=== PATIENT | male | born 1990 | race African-American/Black ===

== ENCOUNTER 2020-04-08 14:52 | Inpatient (IN) | payer MEDICARE, OTHER ==
[~2020-04-08] VITALS: Ht 175.3 cm; Wt 86.2 kg
[2020-04-08] MEDS ORDERED: SODIUM CHLORIDE 0.9% 1000ML 1,000 ML IV STA (16:22)
--- NOTE | 2020-04-08 16:29 | Emergency Department Note ---
History of Present Illnes History of Present Illness History of Present Illness This is a 29 year old male . 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 c/o weakness dizziness stumbling slurred speech lethargic hx dawson - Dr Dawkins in eval pt status in triage Onset (how long ago): day(s) (1 hr cryptanalyst) Radiation: non-radiation, back, neck, extremity, abdomen, periumbilical, flank, proximal, distal, other Onset quality: sudden Duration (how long): day(s) ( hr cryptanalyst) Progression: worsening Context: recent illness, recent surgery, recent immobilization, recent travel, trauma/injury, new medications, hx of DVT/PE, non-compliance w/ medications, other Relieving factors: none Exacerbating factors: none Treatments prior to arrival: none (ROSE HUTCHINS NP) Past Medical/Family History Physician Review I have reviewed the patient's past medical and family history. Any updates have been documented here. (ROSE HUTCHINS NP) Past Medical History Past Medical History: Hypertension, Seizure Disorder (ROSE HUTCHINS NP) Social History Smoking Cessation: Current some day smoker Alcohol Use: Social Any Illegal Drug Use: Yes TB Exposure/Symptoms: No Physically hurt or threatened: No (ROSE HUTCHINS NP) Family History Family history of heart diseas: No (ROSE HUTCHINS NP) Other Any Pre-Existing Lines (PICC,: No (ROSE HUTCHINS NP) Review of Systems Review of Systems Constitutional: weakness, other (lethargic slurred speech dizziness ) EENTM: no symptoms Cardiovascular: no symptoms Respiratory: no symptoms Gastrointestinal: no symptoms Genitourinary: no symptoms Musculoskeletal: no symptoms Neurological: weakness, other (dizziness) Psychological: no symptoms Endocrine: no symptoms Hematological/Lymphatic: no symptoms Review of other systems All other systems reviewed and negative. (ROSE HUTCHINS NP) Physical Exam Related Data Allergies: Coded Allergies: gabapentin (Verified Allergy, Severe, 04/08/20) Vital signs reviewed: Yes (ROSE HUTCHINS NP) Physical Exam CONSTITUTIONAL Constitutional: well-developed, well-nourished HENT HENT: normocephalic, atraumatic HENT L/R: left ext ear normal, right ext ear normal EYES Eyes: PERRL, conjunctivae normal NECK Neck: ROM normal PULMONARY Pulmonary: effort normal, breath sounds normal CARDIOVASCULAR Cardiovascular: regular rhythm, heart sounds normal, capillary refill normal, normal rate GASTROINTESTINAL GENITOURINARY Genitourinary: exam deferred SKIN Skin: warm, dry MUSCULOSKELETAL Musculoskeletal: ROM normal NEUROLOGICAL Neurological: alert, oriented x 3, abnormal gait, weakness, other (lethargic ) PSYCHOLOGICAL Psychological: other (lethargic ) (ROSE HUTCHINS NP) Results Laboratory Laboratory Laboratory Tests Test 04/08/20 20:15 White Blood Count 3.95 x10e3/uL (4.8-10.8) Red Blood Count 5.24 x10e6/uL (4.3-5.7) Hemoglobin 15.5 g/dL (14.0-18.0) Hematocrit 46.5 % (38.2-49.6) Mean Corpuscular Volume 88.7 fL (81-99) Mean Corpuscular Hemoglobin 29.6 pg (28-32) Mean Corpuscular Hemoglobin Concent 33.3 g/dL (31-35) Red Cell Distribution Width 13.0 % (11.7-14.4) Platelet Count 338 x10e3/uL (140-360) Neutrophils (%) (Auto) 49.3 % (38.7-80.0) Lymphocytes (%) (Auto) 40.5 % (18.0-39.1) Monocytes (%) (Auto) 8.6 % (4.4-11.3) Eosinophils (%) (Auto) 1.0 % (0.0-6.0) Basophils (%) (Auto) 0.3 % (0.0-1.0) Neutrophils # (Auto) 2.0 (2.1-6.9) Lymphocytes # (Auto) 1.6 (1.0-3.2) Monocytes # (Auto) 0.3 (0.2-0.8) Eosinophils # (Auto) 0.0 (0.0-0.4) Basophils # (Auto) 0.0 (0.0-0.1) Absolute Immature Granulocyte (auto 0.01 x10e3/uL (0-0.1) Prothrombin Time 13.1 seconds (11.9-14.5) Prothromb Time International Ratio 0.94 Activated Partial Thromboplast Time 29.4 seconds (23.8-35.5) Ammonia 57 UG/DL (31-123) Acetaminophen Level < 3.0 ug/mL (10-30) Ethyl Alcohol Level < 10.0 mg/dL (0.0-10.0) Lab results reviewed: Yes (ROSE HUTCHINS NP) Imaging Impressions ct brain IMPRESSION: 1. No acute intracranial abnormality. 2. 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 Recommend correlation with surgical history. 3. Nonspecific calcifications within the bilateral lentiform nuclei and thalami. Differential is broad. Sequela of anoxic, toxic, metabolic, or infectious insult or underlying genetic metabolic abnormality inclusive of mitochondrial disease and abnormalities of calcium metabolism are all considerations. Signed by: Dr. Johann Pearson M.D. 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 c/o weakness dizziness stumbling slurred speech lethargic hx sz - Dr Dawkins in eval pt status in triage - lab ekg ct brain ordered Discussed pt presentation w/ Dr Tamie bueno pending (ROSE HUTCHINS NP) Assessment & Plan Final Impression: (1) ALTERED MENTAL STATUS, UNSPECIFIED Assessment & Plan Care of pt turned over to Dr Tamie bueno pending (ROSE HUTCHINS NP) Assessment & Plan CBC, CMP reviewed Dilantin level noted to be elevated CT brain review with post craniotomy findings noted (YONATAN FANG DO) Depart Disposition: ADMITTED Physician Attestation Provider Attestation The patient's history, exam findings, diagnostics, and a summary of any interventions or procedures was reviewed in detail with our [facility]. I personally interviewed and examined the patient, and I have reviewed and agree with the HPI andexam. My personal exam shows age-appropriate male appears confused and slow to respond. Phenytoin level noted to be markedly elevated was maybe the achieving cause of patient's confusion. Patient admitted for monitoring and observation hemodynamically stable, no concerns of infectious etiology at time of admission.. I confirm the diagnosis as documented by the [facility]ON[facility]. I have review ed and agree with the care plan articulated in the disposition section. (YONATAN FANG DO) ROSE HUTCHINS NP April 08, 2020 16:29 YONATAN FANG DO April 08, 2020 23:39
--- NOTE | 2020-04-08 17:15 | Diagnostic Imaging Report ---
Examination: Single AP view of the chest. COMPARISON: None. INDICATION: Slurred speech DISCUSSION: Lines/tubes: None. Lungs: The lungs are well inflated and clear. No pneumonia or pulmonary edema. Pleura: No pleural effusion or pneumothorax. Heart and mediastinum: The heart and the mediastinum are unremarkable. Bones and soft tissues: No acute bony abnormalities. IMPRESSION: 1. No acute cardiopulmonary abnormalities. Signed by: Dr. Dmitri Ochoa M.D. on 04/08/2020 5:11 PM
--- NOTE | 2020-04-08 17:33 | Diagnostic Imaging Report ---
History:Slurred speech, dizziness. Per ordering physician, patient has history of brain surgery in his 20s but uncertain reason. Also has history of seizures. Comparison studies: None Technique: Axial images were obtained from the skull base to the vertex. Coronal and sagittal images reconstructed from the axial data. Dose modulation, iterative reconstruction, and/or weight based adjustment of the mA/kV was utilized to reduce the radiation dose to as low as reasonably achievable. Intravenous contrast: None Findings: Scalp/skull: Postoperative changes of a prior left frontal craniotomy are present. Extra-axial spaces: No masses. No fluid collections. Brain sulci: Left frontal sulci are mildly prominent due to volume loss. Remaining sulci are are within normal limits for patient's age. Ventricles: Normal in caliber. No hydrocephalus. Parenchyma: Chronic insult with encephalomalacia, gliosis and dystrophic calcifications within the left superior and middle frontal gyrus beneath the left frontal craniotomy. Insult extends to the frontal horn of the left lateral ventricle. Additional scattered nonspecific calcifications are present within the lentiform nuclei and thalami. No mass, acute hemorrhage or acute cortical insults. Sellar/suprasellar region: No abnormalities. Craniocervical junction: Patent foramen magnum. No Chiari one malformation. IMPRESSION: 1. No acute intracranial abnormality. 2. 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 Recommend correlation with surgical history. 3. Nonspecific calcifications within the bilateral lentiform nuclei and thalami. Differential is broad. Sequela of anoxic, toxic, metabolic, or infectious insult or underlying genetic metabolic abnormality inclusive of mitochondrial disease and abnormalities of calcium metabolism are all considerations. Signed by: Dr. Johann Pearson M.D. on 04/08/2020 7:42 PM
[2020-04-08 21:01] LABS: BASOPHILS % 0.3 % (0.0-1.0); HEMATOCRIT 46.5 % (38.2-49.6); HEMOGLOBIN 15.5 g/dL (14.0-18.0); LYMPHOCYTES # (AUTO) 1.6 (1.0-3.2); LYMPHOCYTES % 40.5 % (18.0-39.1); MEAN CORPUSCULAR HEMOGLOBIN 29.6 pg (28-32); MEAN CORPUSCULAR HGB CONC 33.3 g/dL (31-35); MEAN CORPUSCULAR VOLUME 88.7 fL (81-99); MONOCYTES # (AUTO) 0.3 (0.2-0.8); MONOCYTES % 8.6 % (4.4-11.3); NEUTROPHILS % 49.3 % (38.7-80.0); PLATELET COUNT 338 x10e3/uL (140-360); RED BLOOD COUNT 5.24 x10e6/uL (4.3-5.7)
[2020-04-08 21:08] LABS: INR 0.94; PROTHROMBIN TIME 13.1 seconds (11.9-14.5)
[2020-04-08 21:09] LABS: PARTIAL THROMBOPLASTIN TIME 29.4 seconds (23.8-35.5)
[2020-04-08 21:18] LABS: ALANINE AMINOTRANSFERASE 8 IU/L (0-55); ALBUMIN 4.8 g/dL (3.5-5.0); ALBUMIN/GLOBULIN RATIO 1.4 (0.8-2.0); ALKALINE PHOSPHATASE 82 IU/L (40-150); ANION GAP 14.9 mmol/L (8-16); BLOOD UREA NITROGEN 8 mg/dL (7-26); BUN/CREATININE RATIO 9 (6-25); CALCIUM 9.5 mg/dL (8.4-10.2); CARBON DIOXIDE 28 mmol/L (22-29); CHLORIDE 99 mmol/L (98-107); CREATINE KINASE 147 IU/L (30-200); CREATININE, SERUM 0.93 mg/dL (0.72-1.25); EST GLOMERULAR FILTRATION RATE > 60 ML/MIN (60-); GLUCOSE 95 mg/dL (74-118); MAGNESIUM 2.2 MG/DL (1.3-2.1); POTASSIUM 3.9 mmol/L (3.5-5.1); SODIUM 138 mmol/L (136-145)
[2020-04-08 21:38] LABS: PHENYTOIN (DILANTIN) 37.68 ug/mL (10-20)
[2020-04-08 22:25] LABS: BILIRUBIN,URINE NEGATIVE (NEGATIVE); CLARITY,URINE CLEAR (CLEAR); COLOR,URINE AMBER (YELLOW); KETONES,URINE NEGATIVE (NEGATIVE); LEUKOCYTE ESTERASE ,URINE NEGATIVE (NEGATIVE); NITRITE,URINE NEGATIVE (NEGATIVE); PROTEIN,URINE DIPSTICK NEGATIVE (NEGATIVE); URINE UROBILINOGEN 0.2 mg/dL (0.2 - 1)
[2020-04-08 22:26] LABS: AMPHETAMINES SCREEN,URINE NEGATIVE (NEGATIVE); BENZODIAZEPINES SCREEN,URINE NEGATIVE (NEGATIVE); PHENCYCLIDINE SCREEN,URINE NEGATIVE (NEGATIVE)
[2020-04-08 23:00] LABS: EPITHELIAL CELLS,URINE RARE /LPF
[2020-04-08] MEDS ORDERED: SODIUM CHLORIDE 0.9% 1000ML 1,000 ML ONE (23:51)
[2020-04-09] VITALS (10 sets, daily range): BP systolic 121–147; BP diastolic 62–94
--- OUTSIDE RECORDS SUMMARY | 2020-04-09 00:21 | XMS REPORT | Clinical Summary ---
Author Author [facility] ict Organization [facility] ict Address Unknown Phone Unavailable Care Team Providers Care Potato Sorter Name Role Phone Olivia Acuña MD PCP Allergies Comments Active Allergy Reactions Severity Noted Date DOUBLE VISION Levetiracetam 09/08/2008 Medications End Date Status Medication Sig Dispensed Refills Start Date Active OXcarbazepine (TRILEPTAL) Take 2 Tabs 120 Tab 6 150 mg tabletIndications: by mouth 2 1 Seizure disorder times daily. Active OXcarbazepine (TRILEPTAL) Take 3 Tabs 180 Tab 12 150 mg tabletIndications: by mouth 2 1 Seizure disorder times daily. Active OXcarbazepine (TRILEPTAL) Take 1 Tab by 180 Tab 6 600 mg tabletIndications: mouth 2 times 1 Seizure disorder daily. Active silver sulfADIAZINE Apply to 50 g 0 (SILVADENE) 1 % topical affected area 3 creamIndications: Knee daily. pain, right Active ibuprofen (MOTRIN) 400 mg Take 1 tablet 30 tablet 0 tabletIndications: Knee by mouth 3 pain, right every 6 hours as needed for Pain. Active lacosamide (VIMPAT) 150 Take 100 mg 0 mg Tab by mouth 2 times daily . Active lacosamide (VIMPAT) 150 Take 150 mg 0 mg Tab by mouth every evening. Active propranolol hcl LA Take 120 mg 0 (INDERAL LA) 120 mg 24 hr by mouth capsule every evening. Active sodium chloride (OCEAN Use 1 [place] 15 mL 1 NASAL) 0.65 % nasal in each 4 sprayIndications: nostril as Impacted third molar needed for tooth Congestion. Active DILANTIN (DILANTIN) 30 mg Take 30 mg by 0 extended release capsule mouth. Active phenytoin sodium Take 200 mg 0 (DILANTIN EXTENDED) 100 by mouth 2 mg extended release times daily. capsule Active atenolol (TENORMIN) 50 mg Take 50 mg by 0 tablet mouth daily. Active ibuprofen (MOTRIN) 600 mg Take 1 tablet 30 tablet 0 tabletIndications: Caries by mouth 5 every 8 hours as needed for Pain. Active acetaminophen-codeine Take 2 30 tablet 0 01/11 (TYLENOL/CODEINE #3) tablets by 7 300-30 mg per mouth every 4 tabletIndications: Follow hours as up, Closed displaced needed for fracture of lateral Pain. malleolus of right fibula, initial encounter Active acetaminophen-codeine Take 1 tablet 45 tablet 0 (TYLENOL/CODEINE #3) by mouth 7 300-30 mg per every 4 hours tabletIndications: Other as needed for closed fracture of distal Pain. end of left fibula, initial encounter Active ergocalciferol (VITAMIN Take 1 12 capsule 0 D2) 50,000 unit capsule by 7 capsuleIndications: Other mouth weekly. closed fracture of distal end of left fibula, initial encounter Active calcium citrate 250 mg Take 1,250 mg 120 tablet 1 0 calcium TabIndications: by mouth 7 Other closed fracture of daily. distal end of left fibula, initial encounter Active perampanel (FYCOMPA) 2 mg Take by 90 tablet 3 TabIndications: Brain mouth. 0 neoplasm, 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 status epilepticus, unspecified epilepsy type Active Lacosamide (VIMPAT) 200 Take 1 po 90 tablet 3 mg tabletIndications: daily. 0 Brain neoplasm, 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 status epilepticus, unspecified epilepsy type Active propranolol (INDERAL) 10 Take 2 tabs 180 tablet 3 0 mg tabletIndications: three times a 0 Brain neoplasm, day. 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 0 Encounter for vaccination, Mixed hyperlipidemia, Urinary tract infection without hematuria, site unspecified, Vitamin D deficiency Active ergocalciferol (VITAMIN Take 1 12 capsule 0 D2) 1,250 mcg (50,000 capsule by 0 unit) capsuleIndications: mouth weekly. Vitamin D deficiency 11/24/2019 Discontinued (Reorder) propranolol (INDERAL) 10 Take 2 tabs 180 tablet 3 0 mg tabletIndications: three times a 0 Brain neoplasm, day. 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 status epilepticus, unspecified epilepsy type, Essential hypertension Active Problems Problem Noted Date Impaired functional mobility, balance, gait, and endu fanta 05/10/2017 Weakness of both lower extremities 05/10/2017 Decreased range of motion of ankle 05/10/2017 Acute left ankle pain 02/08/2017 Dental caries 04/30/2016 Unspecified dental caries 11/07/2015 Follow up 08/23/2015 Pain, dental 07/07/2015 Pain due to dental caries 05/20/2015 Dental decay 07/30/2014 Dental examination 06/04/2014 Impacted third molar tooth 01/27/2014 Knee pain, right 09/23/2013 Seizure disorders, absence 09/02/2009 Overview: Seizure episode Not unlike usual episo zheng. School concerned so called 911. Normal exam here in [place]. 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 wears hearing aids. Encounters Care Team Description Date Type Specialty Adarsh Kumari NP Epilepsy (Primary Dx) 03/03/2020 Telephonic Neurology Encounter Olivia Acuña MD Encounter for vaccination (Primary Dx); Mixed hyperlipidemia; Urinary tract infection without hematuria, site unspecified; Vitamin D deficiency; FH: CAD (coronary artery disease) 12/17/2019 Office Visit Family Practice Olivia Acuña MD Brain neoplasm; 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 status epilepticus, unspecified epilepsy type 12/10/2019 Hospital Radiology Encounter Olivia Acuña MD 12/07/2019 Hospital Encounter Olivia Acuña MD Brain neoplasm; 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 status epilepticus, unspecified epilepsy type; Essential hypertension 11/24/2019 Orders Only Family Practice Olivia Acuña MD Brain neoplasm (Primary Dx); 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 status epilepticus, unspecified epilepsy type; Essential hypertension 11/16/2019 Office Visit Family Practice Olivia Acuña MD Brain neoplasm; 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 status epilepticus, unspecified epilepsy type; Essential hypertension 11/16/2019 Orders Only Family Practice after 04/09/2019 Immunizations Name Administration Dates Next Due Influenza, Injectable, 12/17/2019 (Deferred: Patie nt Refused) Quadrivalent Family History Medical History Relation Name Comments Other Other no known family his tory Relation Name Status Comments Father kidney failure (Age 71) Other Social History Date Tobacco Use Types Packs/Day Years Used Never Smoker Smokeless Tobacco: Never Used Tobacco Cessation: Counseling Given: Yes Drinks/Week oz/Week Comments Alcohol Use No Food Insecurity Answer Date Recorded Within the past 12 months, you worried that your Never cristian e 11/16/2019 food would run out before you got money to buy more. Within the past 12 months, the food you bought Never true 11/16/2019 just didn't last and you didn't have mo bartolome to get more. Sex Assigned at Date Recorded Not on file Industry Job Start Date Occupation Not on file Not on file Not on file Travel End Travel History Travel Start No recent travel history available. Last Filed Vital Signs Reading Time Taken Comments Vital Sign 123/70 12/17/2019 8:59 AM OFFICE MESSENGER HELPER Blood Pressure 57 12/17/2019 8:59 AM OFFICE MESSENGER HELPER Pulse 36.9 C (98.5 F) 12/17/2019 8:59 AM OFFICE MESSENGER HELPER Temperature 18 12/17/2019 8:59 AM OFFICE MESSENGER HELPER Respiratory Rate - - Oxygen Saturation - - Inhaled Oxygen Concentration 87.8 kg (193 lb 9.6 oz) 12/17/2019 8:59 AM OFFICE MESSENGER HELPER Weight 175.3 cm (5' 9") 12/17/2019 8:59 AM OFFICE MESSENGER HELPER Height 28.59 12/17/2019 8:59 AM OFFICE MESSENGER HELPER Body Mass Index Plan of Treatment Care Team Description Date Type Specialty Vinod Faust OD [address] [place] [address] [phone] 05/10/2020 Office Visit Ophthalmology Olivia Acuña MD [address] [place] [address] [phone] 03/29 APT RESCHEDULED FROM COVID-19 PRECA UTIONS. 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 status epilepticus, unspecified epilepsy type URINALYSIS Routine 11/16/2019 Brain neoplasm 9:53 AM OFFICE MESSENGER HELPER 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 status epilepticus, unspecified epilepsy type URINALYSIS Routine 11/16/2019 Brain neoplasm 9:53 AM OFFICE MESSENGER HELPER 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 status epilepticus, unspecified epilepsy type CBC Routine 11/16/2019 Brain neoplasm 9:10 AM OFFICE MESSENGER HELPER 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 status epilepticus, unspecified epilepsy type VIT D, 25-HYDROXY Routine 11/16/2019 Brain neopla sm 9:10 AM OFFICE MESSENGER HELPER 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 status epilepticus, unspecified epilepsy type THYROID STIMULATING Routine 11/16/2019 Brain neop lasm HORMONE (TSH) 9:10 AM OFFICE MESSENGER HELPER Nonintractable epil epsy without status epilepticus, unspecified epilepsy type LIPID PROFILE Routine 11/16/2019 Brain neoplasm 9:10 AM OFFICE MESSENGER HELPER 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 status epilepticus, unspecified epilepsy type LIVER PROFILE Routine 11/16/2019 Brain neoplasm 9:10 AM OFFICE MESSENGER HELPER 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 status epilepticus, unspecified epilepsy type BASIC METABOLIC PANEL Routine 11/16/2019 Brain ne oplasm 9:10 AM OFFICE MESSENGER HELPER 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 Stable post surgical changes of le ft frontal craniotomy and left frontal lobe surgical cavity. No vasoge anna edema or new mass effect to suggest tumor recurrence. However, MRI of the brain with and without contrast is much more sensitive in eval uation for tumor surveillance. 2. Encephalomalacia and gliosis throu ghout the left frontal lobe in this patient with a history of seizures . 3. 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 I have reviewed the study and agree wit h the findings in this report. Signed By: Sloane Raymundo MD, 12/10/19 20 11:00 AM Narrative Performed At EXAM: CT BRAIN WITHOUT CONTRAST SMS DATE: 12/10/2019 8:24 AM INDICATION: "Seizure, new, nontraumatic , 18-40 yrs. Brain neoplasm" ADDITIONAL INFORMATION: 29-year-old mal e history of tumor resection over 10 years ago. Tumor pathology, stage, a nd treatment not specified. Seizure disorder, on medication. COMPARISON: CT brain from 12/07/2017 TECHNIQUE: Axial CT images of the brain are acquired without contrast. Sagittal and coronal reformats. IV contrast: None. DLP: 823 mGy-cm FINDINGS: Postsurgical changes of left frontal cr aniotomy and tumor resection with stable encephalomalacia involving the l eft frontal lobe superior and middle frontal gyri as well as portions of the single gyrus. Unchanged extensive calcification in th e bilateral basal ganglia and thalami, which likely represents post r adiation/post treatment microangiopathy. There is no intracranial hemorrhage. No extra-axial fluid collections. Huynh-white matter differentiation is in tact. There is no mass lesion or midline shift. The ventricles are cezar l in size there is no hydrocephalus. Nonspecific thickening in the right max illary sinus. The mastoid air cells are clear. No acute abnormality of the calvarium o r skull base. The globes and soft tissues are unremarkable. Procedure Note Interface, Rad/Mammog In - 12/10/2019 11:05 AM OFFICE MESSENGER HELPER EXAM: CT BRAIN WITHOUT CONTRAST DATE: 12/10/2019 8:24 AM INDICATION: "Seizure, new, nontraumatic, 18-40 yrs. Brain neoplasm" ADDITIONAL INFORMATION: 29-year-old male history of tumor resection over 10 years ago. Tumor pathology, stage, an d treatment not specified. Seizure disorder, on medication. COMPARISON: CT brain from 12/07/2017 TECHNIQUE: Axial CT images of the brain are acquired without contrast. Sagittal and coronal reformats. IV contrast: None. DLP: 823 mGy-cm FINDINGS: Postsurgical changes of left frontal craniotomy and tumor resection with stable encephalomalacia involving the left frontal lobe superior and middle frontal gyri as well as portions of the single gyrus. 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 There is no intracranial hemorrhage. No extra-axial fluid collections. Huynh-white matter differentiation is intact. There is no mass lesion or midline shift. The ventricles are normal in size there is no hydrocephalus. Nonspecific thickening in the right maxillary sinus. The mastoid air cells are clear. No acute abnormality of the calvarium or skull base. The globes and soft tissues are unremarkable. IMPRESSION IMPRESSION: 1. Stable post surgical changes of left frontal craniotomy and left frontal lobe surgical cavity. No vasogenic edema or new mass effect to suggest tumor recurrence. However, MRI of the brain with and without contrast is much more sensitive in evaluation for tumor surveillance. 2. Encephalomalacia and gliosis through out the left frontal lobe in this patient with a history of seizures. 3. 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 I have reviewed the study and agree with the findings in this report. Signed By: Sloane Raymundo MD, 12/10/2019 11:00 AM Performing Organization Address City/State/Zipcode Ph one Number SMS * EEG-ROUTINE (12/07/2019 10:02 AM OFFICE MESSENGER HELPER) Specimen Narrative Performed At [facility] EEG Report Generated: 12/07/2019 4:23:16 PM Patient Information ID [id number] EEG Date 12/07/2019 Name CUAUHTEMOC MUNSON EEG No. Gender Male In/Out patient Out Date of 1990 Refer. Dept. [place] Age 29 yr 2 mo Refer. Physician OLIVIA ACUÑA Eddy Current Inspector Fidelia Adams Comment [facility] Medications: Dilantin, Trileptal Start: 12/07/2019 9:29:48 AM End: 12/07/2019 10:02:18 AM Introduction This routine EEG using the Internationa l 10-20 System was performed on a patient who was lethargic during the recording. Description No PDR. Diffuse, generalized 4-6 Hz the ta and delta activity with reactivity. There is concomittant focal left hemisp heric slowing. Epileptiform Activity: 2 sharp waves, 1 over left frontal zuly on (F3>Fp1) and 1 over R frontal region (Fp2). No seizures are noted. Impression This abnormal EEG is consistent with a moderate-severe encephalopathy and left frontal epileptogenic struc tural abnormality. No seizures are capt ured. Provider ID: [id number] Procedure Note Interface, Eeg-Results - 12/07/2019 4:31 PM [facility] EEG Report Generated: 12/07/2019 4:23:16 PM Patient Information ID [id number] EEG Date 12/07/2019 Name CUAUHTEMOC MUNSON EEG No. Gender Male In/Out patient Out Date of 1990 Refer. Dept. [place] Age 29 yr 2 mo Refer. Physician OLIVIA ACUÑA Eddy Current Inspector Fidelia Adams Comment [facility] Medications: Dilantin, Trileptal Start: 12/07/2019 9:29:48 AM End: 12/07/2019 10:02:18 AM Introduction This routine EEG using the International 10-20 System was performed on a patient who was lethargic during the recording. Description No PDR. Diffuse, generalized 4-6 Hz theta and delta activity with reactivity. There is concomittant focal left hemispheric slowing. Epileptiform Activity: 2 sharp waves, 1 over left frontal regio n (F3>Fp1) and 1 over R frontal region (Fp2). No seizures are noted. Impression This abnormal EEG is consistent with a moderate-severe encephalopathy and left frontal epileptogenic struc tural abnormality. No seizures are captured. Provider ID: [id number] Performing Organization Address City/State/Zipcode Ph one Number [employer] [address] * Urinalysis (11/16/2019 9:53 AM OFFICE MESSENGER HELPER) Color Maria Esther (A) Colorless, Straw, [facility] Yellow [facility] Clarity Cloudy (A) Clear [facility] Spec Guston, 1.035 1.001 - 1.035 [facility] Ur [facility] pH, Ur 5.0 5.0 - 8.0 [facility] Protein, Ur 1+ (A) Negative mg/dL [facility] Glucose, Ur Negative Negative mg/dL [facility] Ketone, Ur 1+ (A) Negative mg/dL [facility] Bilirubin, Ur Negative Negative mg/dL [facility] Nitrite, Ur Negative Negative [facility] Leukocyte Negative Negative mg/dL [facility] Blood, Ur Negative Negative mg/dL [facility] RBC 5 (H) 0 - 4 /HPF [facility] WBC 1 0 - 5 /HPF [facility] Epithelial Cell <1 <=1 /HPF [facility] Mucous Present (A) None seen /HPF [facility] Bacteria Few (A) None seen /HPF [facility] Calc Ox Malissa Present (A) None seen /HPF [facility] Amorphous Sed Present (A) None seen /HPF [facility] Urobilinogen, 1.0 (A) <1.0 EU/dL [facility] Specimen Urine Performing Organization Address City/State/Zipcode Ph one Number [facility] [address] [place] [address] * CBC/Diff (11/16/2019 9:10 AM OFFICE MESSENGER HELPER) Pathologist [facility] WBC 4.5 4.5 - 12.0 K/uL [facility] RBC 4.82 4.60 - 6.20 M/uL [facility] Hemoglobin 14.7 14.0 - 18.0 g/dL [facility] Hematocrit 44.1 40.0 - 54.0 % [facility] MCV 91.5 82.0 - 92.0 fL [facility] MCH 30.5 27.0 - 31.0 pg [facility] MCHC 33.3 32.0 - 36.0 g/dL [facility] RDW 48.2 (H) 35.1 - 43.9 fL [facility] Platelet 240 150 - 400 K/uL [facility] Mean Platelet 11.0 9.4 - 12.4 fL [facility] Volume [facility] Percent NRBC 0.0 % [facility] Neutrophil 56.5 34.0 - 67.9 % [facility] Lymphs 33.0 21.8 - 50.0 % [facility] Monocytes 8.8 5.3 - 12.0 % [facility] Eos 1.1 0.8 - 5.0 % [facility] Basos 0.4 0.2 - 1.2 % [facility] Immature 0.2 0.0 - 0.5 % [facility] Granulocytes LAB[facility] Neutrophils 2.55 1.78 - 5.36 K/uL [facility] (Absolute) LABOR[facility]ORY Lymphs 1.49 1.32 - 3.57 K/uL [facility] (Absolute) LAB[facility] Monocytes(Absol 0.40 0.30 - 0.82 K/uL [facility] abraham) LABORATORY Eos (Absolute) 0.05 0.04 - 0.54 K/uL [facility] Baso (Absolute) 0.02 0.01 - 0.08 K/uL [facility] Immature Grans 0.01 0.00 - 0.03 K/uL [facility] (Abs) [facility] Absolute NRBC 0.00 K/uL [facility] Specimen Blood Performing Organization Address [facility] Ph one Number [facility] [address] [place] [address] * Vitamin D, 25-Hydroxycalciferol (11/16/2019 9:10 AM OFFICE MESSENGER HELPER) Pathologist [facility] Vit D, 17.6 (L) 30.0 - 100.0 ng/mL [facility] 25-Hydroxy LAB[facility]AT[facility] Vitamin D Deficient (A) Sufficient [facility] Interpretation Comment: [facility] Sufficient: >30.0 Insufficient: 20.0 - 29.9 Deficient: <20.0 Specimen Blood Performing Organization Address [facility] Ph one Number [facility] [address] [place] [address] * Hemoglobin A1C (11/16/2019 9:10 AM OFFICE MESSENGER HELPER) Pathologist [facility] Hemoglobin A1c 5.7 4.3 - 6.1 % [facility] Estimated 117 (H) 70 - 110 mg/dL [facility] Average Glucose LAB[facility]ATORY Specimen Blood Performing Organization Address [facility] one Number [facility] [address] [place] [address] * TSH [Thyroid Stimulating Hormone] (11/16/2019 9:10 AM OFFICE MESSENGER HELPER) TSH 1.10 0.45 - 5.33 uIU/mL [facility] Specimen Blood Performing Organization Address [facility] one Number [facility] [address] [place] [address] * Liver Profile (11/16/2019 9:10 AM OFFICE MESSENGER HELPER) Pathologist [facility] Total Protein 6.8 6.0 - 8.3 g/dL [facility] Bilirubin, 0.4 0.2 - 1.2 mg/dL [facility] Total LAB[facility] Alkaline 56 34 - 104 U/L [facility] Phosphatase LAB[facility]ORY AST 11 (L) 13 - 39 U/L [facility] Direct 0.1 0.0 - 0.2 mg/dL [facility] Bilirubin [facility] ALT 8 7 - 52 U/L [facility] Albumin 4.4 4.2 - 5.5 g/dL [facility] Specimen Blood Performing Organization Address [facility] one Number [facility] [address] [place], [place] [id number] * Lipid Profile (11/16/2019 9:10 AM OFFICE MESSENGER HELPER) Cholesterol 240.0 (H) <=200.0 mg/dL [facility] Triglyceride 72 <150 mg/dL [facility] HDL 46.0 See Reference Range [facility] Narrative. mg/dL LAB[facility]ATORY LDL 180 (H) <100 mg/dL [facility] Comment: [facility] Optimal: < 100.0 mg/dL Near Optimal: 120-129 mg/dL Borderline: 130-159 mg/dL High: 160-189 mg/dL Very High: >=190 mg/dL Patient Yes [facility] Fasting? LABORATORY Specimen Blood Performing Organization Address [facility] one Number [facility] [address] [place], [place] [id number] * Basic Metabolic Panel (11/16/2019 9:10 AM OFFICE MESSENGER HELPER) Sodium 141 136 - 145 mmol/L [facility] Potassium 4.1 3.5 - 5.1 mmol/L [facility] Chloride 104 98 - 107 mmol/L [facility] CO2 27 21 - 31 mmol/L [facility] Urea Nitrogen 17.0 7.0 - 25.0 mg/dL [facility] Creatinine 1.0 0.7 - 1.3 mg/dL [facility] Glucose 84 70 - 110 mg/dL [facility] Calcium 9.3 8.6 - 10.3 mg/dL [facility] eGFR If Africn >90 >=90 mL/min/1.73 m2 [facility] Am [facility] Anion Gap 10 5 - 16 mmol/L [facility] Specimen Blood Performing Organization Address City/State/Zipcode Ph one Number [facility] [address] [place] [address] after 04/09/2019 Insurance Type Payer Benefit Subscriber ID Effective Phone Address Plan / Dates Group [employer] HMO [employer] xxxxxxxxx 2018-P [address] [address] [place] [address] [facility] MEDICAID HMO [place] xxxxxxxxx 2017-P [phone] [id number] MEDICAID [facility] [id number] Advance Directives Date Inactivated Comments Code Status Date Activated 04/23/2014 5:57 PM Full Code 04/23/2014 2:20 AM
--- OUTSIDE RECORDS SUMMARY | 2020-04-09 00:22 | XMS REPORT ---
Author Author [facility] t Organization [facility] Address [address] [place] [address] Phone Unavailable Care Team Providers Care Grinding Operator Name Role Phone Domenico HE, S Olivia PCP Airanne HENDRIX Attphys Unavailable Quoc NET LEAD ARCHITECT, Adarsh Attphys Domenico HE, S Elizabethba Attphys Payers Payer Name Policy Type Policy Number Effective Date Expiration Date Jagdeep milena [employer] MEDICARE HMOAMERIVANTAGExxxxx [id number].[id number], [place] [address] xxxxxxxxx 2018 00:00:00 [facility] MEDICAID [employer] MEDIC AID [id number], [place] [address] xxxxxxxxx 2017 00:00:00 Chuck Rivera eahaider Problems Condition Name Condition Details Condition Category Status Onset Date Resolution Date Last Treatment Date Treating Clinician Comments Source Impaired functional mobility, balance, gait, and endur ance Impaired functional mobility, balance, gait, and endurance Disease Active 2017-05-10 00:00:00 [facility] Weakness of both lower extremities Weakness of both lower extrem ities Disease Active 2017-05-10 00:00:00 Roshan Loving Decreased range of motion of ankle Decreased range of motion of ankle Disease Active 2017-05-10 00:00:00 [facility] Acute left ankle pain Acute left ankle pain Disease Active 201 05-13-31 00:00:00 [facility] Dental caries Dental caries Disease Active 2016-04-30 00:00:00 [facility] Unspecified dental caries Unspecified dental caries Disease Ac tive 2015-11-07 00:00:00 [facility] Follow up Follow up Disease Active 2015-08-23 00:00:00 [facility] Pain, dental Pain, dental Disease Active 2015-07-07 00:00:00 [facility] Pain due to dental caries Pain due to dental caries Disease Ac tive 2015-05-20 00:00:00 [facility] Dental decay Dental decay Disease Active 2014-07-30 00:00:00 [facility] Dental examination Dental examination Disease Active 2014-06-04 00:00:0 0 [facility] Impacted third molar tooth Impacted third molar tooth Disease Active 2014-01-27 00:00:00 [facility] Knee pain, right Knee pain, right Disease Active 2013-09-23 00:00:00 [facility] Seizure disorders, absence Seizure disorders, absence Disease Active 2009-09-02 00:00:00 Overview: Seizur e episode Not unlike usual episodes. School concerned so called 911. Normal exam here in [place]. 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 wears hearing aids. [facility] Allergies, Adverse Reactions, Alerts Allergy Name Allergy Type Status Severity Reaction(s) Onset Date Inacti ve Date Treating Clinician Comments Source levetiracetam DA Active MO 2020-03-26 00:00:00 [facility] zonisamide DA Active MO 2020-03-26 00:00:00 [facility] No Known Allergies DA Active U 2019-05-31 00:00:00 [facility] Levetiracetam Propensity to adverse reactions to drug Active 2008-09-08 00:00:00 DOUBLE VISION [facility] Family History Family Member Diagnosis Comments Start Date Stop Date Source Other Other [facility] Social History Social Habit Start Date Stop Date Quantity Comments Source Sex Assigned At [facility] Alcohol intake 2019-12-17 00:00:00 2019-12-17 00:00:00 [facility] History SDOH Food Worry 2019-11-16 00:00:00 2019-11-16 00:00:00 1 [facility] History SDOH Food Scarcity 2019-11-16 00:00:00 2019-11-16 00:00:00 1 [facility] Smoking Status Start Date Stop Date Source Never smoker [facility] Medications Ordered Medication Name Filled Medication Name Start Date Stop Da te Current Medication? Ordering Clinician Indication Dosage Frequency Signature (SIG) Comments Components Source ciprofloxacin HCl (CIPRO) 500 mg tablet 2019-12-17 00:00:00 Yes Vitamin D deficiency Take 1 po twice daily. [facility] ergocalciferol (VITAMIN D2) 1,250 mcg (50,000 unit) capsule 2019-12-17 00:00:00 Yes Vitamin D deficiency 36637B Take 1 cap jin by mouth weekly. [facility] propranolol (INDERAL) 10 mg tablet 2019-11-24 00:00:00 Yes Essential hypertension Take 2 tabs three times a day. [facility] perampanel (FYCOMPA) 2 mg Tab 2019-11-16 00:00:00 Yes 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 status epilepticus, unspecified epilepsy type Take by mouth. [facility] Lacosamide (VIMPAT) 200 mg tablet 2019-11-16 00:00:00 Yes 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 status epilepticus, unspecified epilepsy type Take 1 po daily. [facility] propranolol (INDERAL) 10 mg tablet 2019-11-16 00:00:00 202 00:00:00 No Essential hypertension Take 2 tabs three times a d ay. [facility] acetaminophen-codeine (TYLENOL/CODEINE #3) 300-30 mg per tab let 2017-02-18 00:00:00 Yes Other closed fra cture of distal end of left fibula, initial encounter 1{tbl} Take 1 tablet by mouth every 4 hours as needed for Pain. [facility] ergocalciferol (VITAMIN D2) 50,000 unit capsule 2017-02-18 0 0:00:00 Yes Other closed fracture of distal end of left fibula, initial encounter 96149N Take 1 capsule by mouth weekly. [facility] lexii calcium citrate 250 mg calcium Tab 2017-02-18 00:00:00 Yes Other closed fracture of distal end of left fibula, initial encounter 1250mg QD Take 1,250 mg by mouth daily. [facility] acetaminophen-codeine (TYLENOL/CODEINE #3) 300-30 mg per tab let 2017-02-08 00:00:00 Yes Closed displaced fracture of lateral malleolus of right fibula, initial encounter 2{tbl} Take 2 tablets by mo uth every 4 hours as needed for Pain. [facility] phenytoin sodium (DILANTIN EXTENDED) 100 mg extended release capsule 2015-09-08 15:22:06 Yes 200mg Q.5D Take 200 mg by mouth 2 times daily. [facility] atenolol (TENORMIN) 50 mg tablet 2015-09-08 15:22:06 Yes 50mg QD Take 50 mg by mouth daily. [facility] lacosamide (VIMPAT) 150 mg Tab 2015-08-08 14:44:30 Yes 100mg Q.5D Take 100 mg by mouth 2 times daily . [facility] propranolol hcl LA (INDERAL LA) 120 mg 24 hr capsule 2 14:44:30 Yes 120mg Take 120 mg by mouth every evening. [facility] ibuprofen (MOTRIN) 600 mg tablet 2015-08-08 00:00:00 Yes Caries 600mg Take 1 tablet by mouth every 8 hours as needed for Pain. [facility] lacosamide (VIMPAT) 150 mg Tab 2015-05-27 14:41:22 Yes 150mg Take 150 mg by mouth every evening. [facility] DILANTIN (DILANTIN) 30 mg extended release capsule 2015-05 14:41:22 Yes 30mg Take 30 mg by mouth. [facility] sodium chloride (OCEAN NASAL) 0.65 % nasal spray 2014-04-23 00:00:00 Yes Impacted third molar tooth 1{spray} Use 1 [place] i n each nostril as needed for Congestion. [facility] silver sulfADIAZINE (SILVADENE) 1 % topical cream 2013-09-24 00:00:00 Yes Knee pain, right QD Apply to affected area daily. [facility] ibuprofen (MOTRIN) 400 mg tablet 2013-09-24 00:00:00 Yes Knee pain, right 400mg Take 1 tablet by mouth every 6 hours as needed for Javan n. [facility] OXcarbazepine (TRILEPTAL) 600 mg tablet 2011-04-13 00:00:00 Yes Seizure disorder 600mg Q.5D Take 1 Tab by mouth 2 times daily. [facility] OXcarbazepine (TRILEPTAL) 150 mg tablet 2011-02-02 00:00:00 Yes Seizure disorder 450mg Q.5D Take 3 Tabs by mouth 2 times daily. [facility] OXcarbazepine (TRILEPTAL) 150 mg tablet 2011-01-05 00:00:00 Yes Seizure disorder 300mg Q.5D Take 2 Tabs by mouth 2 times daily. [facility] Vital Signs Vital Name Observation Time Observation Value Comments Source Systolic blood pressure 2019-12-17 08:59:00 123 mm[Hg] [facility] Diastolic blood pressure 2019-12-17 08:59:00 70 mm[Hg] [facility] Heart rate 2019-12-17 08:59:00 57 /min [facility] Body temperature 2019-12-17 08:59:00 36.94 Rosa [facility] Respiratory rate 2019-12-17 08:59:00 18 /min [facility] Body height 2019-12-17 08:59:00 175.3 cm [facility] Body weight 2019-12-17 08:59:00 87.816 kg [facility] BMI 2019-12-17 08:59:00 28.59 kg/m2 [facility] Procedures Procedure Date / Time Performed Performing Clinician Sourc e CT HEAD W/O CONTRAST 2019-12-10 14:23:52 Domenico Elizabethdarrion [facility] EEG-ROUTINE 2019-12-07 16:02:18 DomenicoOlivia [facility] [place] [facility] URINALYSIS 2019-11-16 15:53:00 DomenicoOlivia [facility] URINALYSIS 2019-11-16 15:53:00 DomenicoOlivia [facility] HEMOGLOBIN A1C 2019-11-16 15:10:00 DomenicoOlivia [facility] CBC/DIFF 2019-11-16 15:10:00 Domenico, Olivia Gannon [facility] h BASIC METABOLIC PANEL 2019-11-16 15:10:00 Domenico, Olivia Gannon [facility] LIVER PROFILE 2019-11-16 15:10:00 Domenico, Olivia Gannon [facility] h LIPID PROFILE 2019-11-16 15:10:00 Domenico, Olivia [facility]annon [facility] h THYROID STIMULATING HORMONE (TSH) 2019-11-16 15:10:00 Domenico, Mi sba S [facility] VIT D, 25-HYDROXY 2019-11-16 15:10:00 Domenico, Olivia [facility] CBC 2019-11-16 15:10:00 Domenico, Olivia [facility]annon [facility] Plan of Care Planned Activity Planned Date Details Comments Source Future Scheduled Test 2020-08-11 00:00:00 IMM Influenza Seas onal Aug to January (>/= 19 yrs) [code = IMM Influenza Seasonal Aug to January (>/= 19 yrs)] [facility] Encounters Start Date/Time End Date/Time Encounter Type Admission Type [facility] Care Department Encounter ID Source 2017-12-07 22:24:45 2017-12-07 22:24:45 Emergency [facility] [id number] [facility] 2017-12-07 21:41:08 2017-12-07 21:41:08 Emergency [facility] [id number] [facility] 2017-12-07 20:43:04 2017-12-07 20:43:04 Emergency [facility] [id number] [facility] 2017-06-21 15:34:20 2017-06-21 15:34:20 Outpatient [facility] [id number] [facility] 2017-06-11 13:39:55 2017-06-11 13:39:55 Outpatient [facility] [id number] [facility] 2017-06-04 13:12:54 2017-06-04 13:12:54 Outpatient [facility] [id number] [facility] 2017-05-28 13:06:47 2017-05-28 13:06:47 Outpatient [facility] [id number] [facility] 2017-05-21 12:40:23 2017-05-21 12:40:23 Outpatient [facility] [id number] [facility] 2017-05-07 10:18:30 2017-05-07 10:18:30 Outpatient [facility] [id number] [facility] 2017-04-15 14:42:44 2017-04-15 14:42:44 Outpatient [facility] [id number] [facility] 2017-04-15 14:13:18 2017-04-15 14:13:18 Outpatient [facility] [id number] [facility] Results Test Description Test Time Test Comments Results Result Comments Source CT BRAIN WO 2020-04-08 17:13:00 [place] [address] Patient Name: MATILDE ZULUAGA JR MR #: [id number] : 1990 Age/Sex: 29/M Req #: [id number] Adm Physician: Ordered by: MALICK HENDRIX MD Report #: [id number] Location: ER Room/Bed: Procedure: [id number] CT/CT BRAIN WO Exam Date: 04/08/20 Exam Time: 1650 REPORT STATUS: Signed History:Slurred speech, dizziness. Per ordering physician, patient has history of brain surgery in his 20s but uncertain reason. Also has history of seizures. Comparison studies: None Technique: Axial images were obtained from the skull base to the vertex. Co latoya and sagittal images reconstructed from the axial data. Dose modulation, iterative reconstruction, and/or weight based adjustment of the mA/kV was utilized to reduce the radiation dose to as low as reasonably achievable. Intravenous contrast: None Findings: Scalp/skull: Postoperative changes of a prior left frontal craniotomy are present. Extra-axial spaces: No masses. No fluid collections. Brain sulci: Left frontal sulci are mildly prominent due to volume loss. Remaining sulci are are within normal limits for patient's age. Ventricles: Normal in caliber. No hydrocephalus. Parenchyma: Chronic insult with encephalomalacia, gliosis and dystrophic calcifications within the left superior and middle frontal gyrus beneath the left frontal craniotomy. Insult extends to the frontal horn of the left lateral ventricle. Additional scattered nonspecific calcifications are present within the lentiform nuclei and thalami. No mass, acute hemorrhage or acute cortical insults. Sellar/suprasellar region: No abnormalities. Craniocervical junction: Patent foramen magnum. No Chiari one malformation. IMPRESSION: 1. No acute intracranial abnormality. 2. 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 Recommend correlation with surgical history. 3. Nonspecific calcifications within the bilateral lentiform nuclei and thalami. Differential is broad. Sequela of anoxic, toxic, metabolic, or infectious insult or underlying genetic metabolic abnormality inclusive of mitochondrial disease and abnormalities of calcium metabolism are all considerations. Signed by: Dr. Serina Hines M.D. on 04/08/2020 7:42 PM Dictated By: SERINA HINES MD 41 Transcribed By: LEXI on 04/08/201941 COPY TO: MALICK HENDRIX MD CHEST SINGLE (PORTABLE) 2020-04-08 17:11:00 [place] [id number] Patient Name: MATILDE ZULUAGA JR MR #: [id number] : 1990 Age/Sex: 29/M Req #: [id number] [facility] Physician: Ordered by: MALICK HENDRIX MD Report #: [id number] Location: ER Room/Bed: Procedure: [id number] DX/CHEST SINGLE (PORTABLE) Exam Date: 04/08/20 Exam Time: 1650 REPORT STATUS: Signed Examination: Single AP view of the chest. COMPARISON: None. INDICATION: Slurred speech DISCUSSION: Lines/tubes: None. Lungs: The lungs are well inflated and clear. No pneumonia or pulmonary edema. Pleura: No pleural effusion or pneumothorax. Heart and mediastinum: The heart and the mediastinum are unremarkable. Bones and soft tissues: No acute bony abnormalities. IMPRESSION: 1. No acute cardiopulmonary abnormalities. Signed by: Dr. Deneen Mcdonald M.D. on 04/08/2020 5:11 PM Dictated By: DENEEN MCDONALD MD 10 Transcribed By: LEXI on 04/08/201710 COPY TO: MALICK HENDRIX MD - XR SHOULDER 2 + V LT 2020-03-26 05:48:00 FAX: Katlyn Bowen MD [phone] [place]: [place] St: PRE -- Name: MATILDE ZULUAGA [facility] FSED : 1990 Age/S: 29/M [address] [facility] Unit #: [id number] Loc: [facility] [address] Phys: Valeria Talbert MD [place], [place] [address] Acct: [id number] Dis Date: Status: PRE ER PHONE #: Exam Date: 03/26/2020 0538 FAX #: Reason: S/P REDUCTION EXAMS: CPT CODE: [id number] XR SHOULDER 2 + [place] [id number] R16 EXAM: - XR SHOULDER 2 + V LT HISTORY: S/P REDUCTION COMPARISON: 03/26/2020 at 445 FINDINGS: Interval reduction of shoulder dislocation. Hill-Sachs deformity in the posterolateral humeral head. No acute fracture or dislocation. The joint spaces are preserved. No aggressive osseous lesions. No soft tissue abnormality. The visualized lung is clear. IMPRESSION: Interval reduction of shoulder dislocation. at 0548 Reported and signed by: Tyrell Faye MD CC: Katlyn Howard MD Technologist: [facility]land [facility] Date/Time/By: 03/26/2020 (4448) : By: [email or web address] Orig Print D/T: S: 03/26/2020 (9985) PAGE 1 Signed Report - XR SHOULDER 2 + V LT 2020-03-26 05:03:00 FAX: Katlyn Bowen MD [phone] [place]: [place] St: PRE -- Name: MATILDE ZULUAGA [facility] FSED : 1990 Age/S: 29/M [address] [facility] [address] Unit #: [id number] Loc: [facility] [address] Phys: Valeria Talbert MD [place], [place] [address] Acct: [id number] Dis Date: Status: PRE ER PHONE #: Exam Date: 03/26/2020 0457 FAX #: Reason: PAIN SINCE SZ 3 DAYS AGO EXAMS: CPT CODE: [id number] XR SHOULDER 2 + [place] [id number] Exam: Left shoulder 2 views AP and lateral Location: H 12 History: PAIN SINCE SZ 3 DAYS AGO Findings: There is anter ior, subcoracoid dislocation of the humeral head. The bony cortices are intact. The acromioclavicular joint is well preserved. The soft tissues are normal. Impression: Anterior glenohumeral dislocation. at 0503 Reported and signed by: Aiden Matos M.D. CC: Katlyn Howard MD Technologist: Garland Nolan Trnnyrd Date/Time/By: 03/26/2020 (2893) : By: PaulineFC Orig Print D/T: S: 03/26/2020 (7801) PAGE [address] HEAD W/O CONTRAST 2019-12-10 11:00:29 IMPRESS ION: 1. Stable post surgical changes of left frontal craniotomy and leftfrontal lobe surgical cavity. No vasogenic edema or new mass effect tosuggest tumor recurrence. However, MRI of the brain with and withoutcontrast is much more sensitive in evaluation for tumor surveillance.2. Encephalomalacia and gliosis throughout the left frontal lobe inthis patient with a history of seizures.3. Coarse calcifications in the deep huynh matter, which likelyrepresent post radiation/post treatment microangiopathy. I have reviewed the study and agree with the findings in this report. Signed By: Sloane Raymundo MD, 12/10/2019 11:00 AM Interface, Rad/Mammog In - 12/10/2019 11:05 AM CSTEXAM: CT BRAIN WITHOUT CONTRASTDATE: 12/10/2019 8:24 AMINDICATION: "Seizure, new, nontraumatic, 18-40 yrs. Brain neoplasm" ADDITIONAL INFORMATION: 29-year-old male history of tumor resection over10 years ago. Tumor pathology, stage, and treatment not specified.Seizure disorder, on medication.COMPARISON: CT brain from 12/07/2017TECHNIQUE: Axial CT images of the brain are acquired without contrast.Sagittal and coronal reformats.IV contrast: None.DLP: 823 mGy-cm FINDINGS: Postsurgical changes of left frontal craniotomy and tumor resection withstable encephalomalacia involving the left frontal lobe superior andmiddle frontal gyri as well as portions of the single gyrus. Unchanged extensive calcification in the bilateral basal ganglia andthalami, which likely represents post radiation/post treatmentmicroangiopathy. There is no intracranial hemorrhage. No extra-axial fluid collections.Huynh-white matter differentiation is intact. There is no mass lesion ormidline shift. The ventricles are normal in size there is nohydrocephalus.Nonspecific thickening in the right maxillary sinus. The mastoid aircells are clear. No acute abnormality of the calvarium or skull base. The globes and softtissues are unremarkable.IMPRESSIONIMPRESSION: 1. Stable post surgical changes of left frontal craniotomy and leftfrontal lobe surgical cavity. No vasogenic edema or new mass effect tosuggest tumor recurrence. However, MRI of the brain with and withoutcontrast is much more sensitive in evaluation for tumor surveillance.2. Encephalomalacia and gliosis throughout the left frontal lobe inthis patient with a history of seizures.3. Coarse calcifications in the deep huynh matter, which likelyrepresent post radiation/post treatment microangiopathy.I have reviewed the study and agree with the findings in this report.Signed By: Sloane Raymundo MD, 12/10/2019 11:00 AM [facility] EEG-ROUTINE 2019-12-07 16:31:07 Matty, E eg-Results - 12/07/2019 4:31 PM [facility] SystemEEG ReportGenerated: 12/07/2019 4:23:16 PMPatient InformationID [id number] EEG Date 12/07/2019Name ZULUAGAMATILDE EEG No.Gender Male In/Out patient OutDate of 1990 Refer. Dept. CAAge 29 yr 2 mo Refer. Physician OLIVIA TONEY LBJMedications: KatantiChaya javedleptalStart: 12/07/2019 9:29:48 AMEnd: 12/07/2019 10:02:18 AMIntroductionThis routine EEG using the International 10-20 System was performed on a patient who was lethargic duringthe recording.DescriptionNo PDR. Diffuse, generalized 4-6 Hz theta and delta activity with reactivity.There is concomittant focal left hemispheric slowing.Epileptiform Activity:2 sharp waves, 1 over left frontal region (F3>Fp1) and 1 over R frontal region (Fp2).No seizures are noted.ImpressionThis abnormal EEG is consistent with a moderate-severe encephalopathy and left frontal epileptogenic structural abnormality. No seizures are captured.Provider ID: [id number] [facility] LEVETIRACETAM 2019-12-04 23:06:00 Test Item LEVETIRACETAM (test code = LEVTAM) 8.6 ug/mL 10.0-40.0 A This test was developed and its performance characteristicsdetermined by [employer]. It has not been cleared orapproved by the Food and Drug Administration.Performed At: [address] [id number] Pichardo MD Ph:[phone] CREATINE KINASE (CK)2019-12-03 03:36:00* Test Item Value Reference Range Interpretation Comments CREATINE KINASE (CK) (test code = CK) 370 IUnit/L 26-208 H HEPATIC FUNCTION [id number] 03:36:00* Test Item Value Reference Range Interpretation Comments TOTAL PROTEIN (test code = PROT) 5.5 gram/dL 6.4-8.2 L ALBUMIN (test code = ALB) 3.0 g/dL 3.4-5.0 L GLOBULIN (test code = GLOB) 2.5 gram/dL 2.7-4.2 L ALBUMIN/GLOBULIN RATIO (test code = A/G) 1.2 0.75-1.50 N BILIRUBIN TOTAL (test code = BILT) 0.30 mg/dL 0.0-1.0 N BILIRUBIN DIRECT (test code = BILD) 0.10 mg/dL 0.0-0.20 N SGOT/AST (test code = AST) 20 IUnit/L 15-37 N SGPT/ALT (test code = ALT) 19 IUnit/L 12-78 N ALKALINE PHOSPHATASE TOTAL (test code = ALKP) 61 IUnit/L 45-117 N Note change in reference range due to change in reagent. - MRI BRAIN W WO [id number] 09:42:00 FAX: Katlyn Bowen MD [phone] [place]: St: ADM FAX: Addis Portillo [phone] Name: MATILDE ZULUAGA [facility] : 1990 Age/S: 29/M [address] [facility] Unit #: [id number] Loc: [place] [address] Phys: Addis Portillo MD Acct: [id number] Dis Date: Status: ADM IN PHONE #: [phone] Exam Date: 12/02/2019916 FAX #: [phone] Reason: history of brain tumor EXAMS: CPT CODE: [id number] MRI BRAIN W WO CONT 20088 REASON FOR EXAM: history of brain tumor Exam Order Date: 12/02/2019 6:29 PM Attending MGustavo: Addis Portillo MD Procedure: - MRI BRAIN W WO CONT Comparison: CT scan of the brain November 30, 2019 FINDINGS: Axial, sagittal, and coronal images of the head were obtained using T1, T2 weighted, inversion recov yancy, diffusion weighted, and gradient echo sequences. Intravenous gadolin ium was given. The sagittal images show normal pituitary, ce rebellum, and brain stem. No evidence of suprasellar mass. T he axial T2, inversion recovery, and gradient echo images show no evidence of intra or extra axial mass. The ventricles, cisterns, and sulci are unr emarkable. No evidence of hemorrhage. The cerebellar pontine angle area is within normal limits. There is no evidence of mass noted. The axial T1 images show no evidence of mass. No evidence of an acute infarction. On the diffusion-weighted images (series 3 image 30) there are tiny hyperintense foci in the high right frontal lobe however no discrete hypointense focus is seen on the ADC images which suggests that this may be T2 shine through artifact. Postsurgical changes of l eft frontal craniotomy with encephalomalacia of the underlying left fronta l lobe are redemonstrated. Gradient echo images demonstrate blooming artif act within this area which may represent hemosiderin. Basal ganglia calcif ications are seen bilaterally. No abnormal meningeal enhance ment is present. No contrast-enhancing brain parenchymal masses are seen. Mucous retention cysts are seen in the maxillary sinuses, more pronounced on the right side. PAGE 1 Signed Report (CONTINUED) FAX: Katlyn Bowen MD [place]: St: [facility] FAX: Addis Portillo [phone] Name: MATILDE ZULUAGA [facility] : 1990 Age/S: 29/M [address] [facility] Unit #: [id number] Loc: [place], [place] [address] Phys: Addis Portillo MD Acct: [id number] Dis Date: Status: ADM IN PHONE #: Exam Date: 12/02/2019 09 FAX #: [phone] Reason: history of brain tumor EXAMS: CPT CODE: [id number] MRI BRAIN W WO CONT 45092 <Continued> The coronal images show normal optic chiasm. IMPRESSION: No acute intracranial hemorrhage, ischemic event, or contrast-enhancing lesion. Additionally no abnormal meningeal enhancement. Postsurgical changes of previous left frontal craniotomy with encephal omalacia and hemosiderin deposit in the underlying brain. Loca tion: HCA at 0 942 Reported and signed by: Myles Delaney MD CC: Katlyn Howard MD; Addis Portillo MD Techno logist: Cody iBrd(R)(MR) Trnscrd Date/Time /By: 12/02/2019 (0942) : By: [email or web address] Orig Print D/T: S: 12/02/2019 ( 0924) PAGE 2 Signed Report BASIC METABOLIC [id number] 04:19:00* Test Item Value Reference Range Interpretation Comments SODIUM (test code = NA) 142 mmol/L 136-145 N POTASSIUM (test code = K) 3.5 mmol/L 3.5-5.1 N CHLORIDE (test code = CL) 112.0 mmol/L 98-107 H CARBON DIOXIDE (test code = CO2) 24.0 mmol/L 21-32 N ANION GAP (test code = GAP) 9.5 10-20 L GLUCOSE (test code = GLU) 80 mg/dL 74-106 N BLOOD UREA NITROGEN (test code = BUN) 6 mg/dL 7-18 L GLOMERULAR FILTRATION RATE (test code = GFR) > 60 mL/min >=60 Estimated GFR by using Modified MDRD formula.Chronic kidney disease is defined as either kidney damageor GFR <60 mL/min/1.73 m2 for >3 months. CREATININE (test code = CREAT) 0.70 mg/dL 0.7-1.3 N BUN/CREATININE RATIO (test code = BUN/CREA) 8.6 10-20 L CALCIUM (test code = CA) 8.3 mg/dL 8.5-10.1 L HEPATIC FUNCTION [id number] 04:19:00* Test Item Value Reference Range Interpretation Comments TOTAL PROTEIN (test code = PROT) 6.3 gram/dL 6.4-8.2 L ALBUMIN (test code = ALB) 3.3 g/dL 3.4-5.0 L GLOBULIN (test code = GLOB) 3.0 gram/dL 2.7-4.2 N ALBUMIN/GLOBULIN RATIO (test code = A/G) 1.1 0.75-1.50 N BILIRUBIN TOTAL (test code = BILT) 0.30 mg/dL 0.0-1.0 N BILIRUBIN DIRECT (test code = BILD) 0.08 mg/dL 0.0-0.20 N SGOT/AST (test code = AST) 25 IUnit/L 15-37 N SGPT/ALT (test code = ALT) 19 IUnit/L 12-78 N ALKALINE PHOSPHATASE TOTAL (test code = ALKP) 56 IUnit/L 45-117 N Note change in reference range due to change in reagent. CREATINE KINASE (CK)2019-12-02 04:19:00* Test Item Value Reference Range Interpretation Comments CREATINE KINASE (CK) (test code = CK) 651 IUnit/L 26-208 H BASIC METABOLIC [id number] 04:13:00* Test Item Value Reference Range Interpretation Comments SODIUM (test code = NA) 142 mmol/L 136-145 N POTASSIUM (test code = K) 3.5 mmol/L 3.5-5.1 N CHLORIDE (test code = CL) 112.0 mmol/L 98-107 H CARBON DIOXIDE (test code = CO2) mmol/L 21-32 ANION GAP (test code = GAP) 10-20 GLUCOSE (test code = GLU) mg/dL 74-106 BLOOD UREA NITROGEN (test code = BUN) mg/dL 7-18 GLOMERULAR FILTRATION RATE (test code = GFR) mL/min >=60 CREATININE (test code = CREAT) mg/dL 0.7-1.3 BUN/CREATININE RATIO (test code = BUN/CREA) 10-20 CALCIUM (test code = CA) mg/dL 8.5-10.1 HEPATIC FUNCTION [id number] 04:13:00* Test Item Value Reference Range Interpretation Comments TOTAL PROTEIN (test code = PROT) gram/dL 6.4-8.2 ALBUMIN (test code = ALB) g/dL 3.4-5.0 GLOBULIN (test code = GLOB) gram/dL 2.7-4.2 ALBUMIN/GLOBULIN RATIO (test code = A/G) 0.75-1.50 BILIRUBIN TOTAL (test code = BILT) mg/dL 0.0-1.0 BILIRUBIN DIRECT (test code = BILD) mg/dL 0.0-0.20 SGOT/AST (test code = AST) IUnit/L 15-37 SGPT/ALT (test code = ALT) IUnit/L 12-78 ALKALINE PHOSPHATASE TOTAL (test code = ALKP) IUnit/L 45-117 CREATINE KINASE (CK)2019-12-02 04:13:00* Test Item Value Reference Range Interpretation Comments CREATINE KINASE (CK) (test code = CK) IUnit/L 26-208 [id number] 16:55:00* Test Item Value Reference Range Interpretation Comments MAGNESIUM (test code = MAG) 1.9 mg/dL 1.8-2.4 N CREATINE KINASE (CK)2019-12-01 13:57:00* Test Item Value Reference Range Interpretation Comments CREATINE KINASE (CK) (test code = CK) 932 IUnit/L 26-208 H BASIC METABOLIC [id number] 05:33:00* Test Item Value Reference Range Interpretation Comments SODIUM (test code = NA) 144 mmol/L 136-145 N POTASSIUM (test code = K) 4.0 mmol/L 3.5-5.1 N CHLORIDE (test code = CL) 113.0 mmol/L 98-107 H CARBON DIOXIDE (test code = CO2) 23.0 mmol/L 21-32 N ANION GAP (test code = GAP) 12.0 10-20 N GLUCOSE (test code = GLU) 76 mg/dL 74-106 N BLOOD UREA NITROGEN (test code = BUN) 9 mg/dL 7-18 N GLOMERULAR FILTRATION RATE (test code = GFR) > 60 mL/min >=60 Estimated GFR by using Modified MDRD formula.Chronic kidney disease is defined as either kidney damageor GFR <60 mL/min/1.73 m2 for >3 months. CREATININE (test code = CREAT) 0.80 mg/dL 0.7-1.3 N BUN/CREATININE RATIO (test code = BUN/CREA) 11.3 10-20 N CALCIUM (test code = CA) 8.2 mg/dL 8.5-10.1 L CREATINE KINASE (CK)2019-12-01 05:33:00* Test Item Value Reference Range Interpretation Comments CREATINE KINASE (CK) (test code = CK) 948 IUnit/L 26-208 H BASIC METABOLIC [id number] 05:25:00* Test Item Value Reference Range Interpretation Comments SODIUM (test code = NA) 144 mmol/L 136-145 N POTASSIUM (test code = K) 4.0 mmol/L 3.5-5.1 N CHLORIDE (test code = CL) 113.0 mmol/L 98-107 H CARBON DIOXIDE (test code = CO2) mmol/L 21-32 ANION GAP (test code = GAP) 10-20 GLUCOSE (test code = GLU) mg/dL 74-106 BLOOD UREA NITROGEN (test code = BUN) mg/dL 7-18 GLOMERULAR FILTRATION RATE (test code = GFR) mL/min >=60 CREATININE (test code = CREAT) mg/dL 0.7-1.3 BUN/CREATININE RATIO (test code = BUN/CREA) 10-20 CALCIUM (test code = CA) mg/dL 8.5-10.1 CREATINE KINASE (CK)2019-12-01 05:25:00* Test Item Value Reference Range Interpretation Comments CREATINE KINASE (CK) (test code = CK) IUnit/L -208 CBC W/AUTO [id number] 04:54:00* Test Item Value Reference Range Interpretation Comments WHITE BLOOD CELL (test code = WBC) 11.0 K/mm3 4.5-12.5 N RED BLOOD CELL (test code = RBC) 4.43 mill/mm3 4.0-5.8 N HEMOGLOBIN (test code = HGB) 13.1 gram/dL 13.0-17.5 N HEMATOCRIT (test code = HCT) 39.7 % 42.0-52.0 L MEAN CELL VOLUME (test code = MCV) 89.6 fL 80-98 N MEAN CELL HGB (test code = MCH) 29.6 picogram 27.0-33.0 N MEAN CELL HGB CONCETRATION (test code = MCHC) 33.0 gram/dL 33.0-36. 0 N RED CELL DISTRIBUTION WIDTH (test code = RDW) 13.3 % 11.6-16. 2 N RED CELL DISTRIBUTION WIDTH SD (test code = RDW-SD) 44.0 fL 37 .0-51.0 N PLATELET COUNT (test code = PLT) 226 K/mm3 150-450 RESULT VERIFIED BY REPEAT ANALYSIS MEAN PLATELET VOLUME (test code = MPV) 10.3 fL 6.7-11.0 N NEUTROPHIL % (test code = NT%) 77.6 % 39.0-69.0 H IMMATURE GRANULOCYTE % (test code = IG%) 0.4 % 0.0-5.0 N LYMPHOCYTE % (test code = LY%) 13.3 % 25.0-55.0 L MONOCYTE % (test code = MO%) 8.6 % 0.0-10.0 N EOSINOPHIL % (test code = EO%) 0.0 % 0.0-5.0 N BASOPHIL % (test code = BA%) 0.1 % 0.0-1.0 N NUCLEATED RBC % (test code = NRBC%) 0.0 % 0-0 N NEUTROPHIL # (test code = NT#) 8.56 K/mm3 1.8-7.7 H IMMATURE GRANULOCYTE # (test code = IG#) 0.04 x10 3/uL 0-0.03 H LYMPHOCYTE # (test code = LY#) 1.47 K/mm3 1.0-5.0 N MONOCYTE # (test code = MO#) 0.95 K/mm3 0-0.8 H EOSINOPHIL # (test code = EO#) 0.00 K/mm3 0.0-0.5 N BASOPHIL # (test code = BA#) 0.01 K/mm3 0.0-0.2 N NUCLEATED RBC # (test code = NRBC#) 0.00 K/mm3 0.0-0.1 N BASIC METABOLIC [id number] 20:42:00* Test Item Value Reference Range Interpretation Comments SODIUM (test code = NA) 145 mmol/L 136-145 N POTASSIUM (test code = K) 4.2 mmol/L 3.5-5.1 N CHLORIDE (test code = CL) 116.0 mmol/L 98-107 H CARBON DIOXIDE (test code = CO2) 22.0 mmol/L 21-32 N ANION GAP (test code = GAP) 11.2 10-20 N GLUCOSE (test code = GLU) 78 mg/dL 74-106 N BLOOD UREA NITROGEN (test code = BUN) 12 mg/dL 7-18 N GLOMERULAR FILTRATION RATE (test code = GFR) > 60 mL/min >=60 Estimated GFR by using Modified MDRD formula.Chronic kidney disease is defined as either kidney damageor GFR <60 mL/min/1.73 m2 for >3 months. CREATININE (test code = CREAT) 0.90 mg/dL 0.7-1.3 N BUN/CREATININE RATIO (test code = BUN/CREA) 13.3 10-20 N CALCIUM (test code = CA) 7.6 mg/dL 8.5-10.1 L HEPATIC FUNCTION [id number] 20:42:00* Test Item Value Reference Range Interpretation Comments TOTAL PROTEIN (test code = PROT) 6.1 gram/dL 6.4-8.2 L ALBUMIN (test code = ALB) 3.5 g/dL 3.4-5.0 N GLOBULIN (test code = GLOB) 2.6 gram/dL 2.7-4.2 L ALBUMIN/GLOBULIN RATIO (test code = A/G) 1.4 0.75-1.50 N BILIRUBIN TOTAL (test code = BILT) 0.20 mg/dL 0.0-1.0 N BILIRUBIN DIRECT (test code = BILD) 0.06 mg/dL 0.0-0.20 N SGOT/AST (test code = AST) 53 IUnit/L 15-37 H SGPT/ALT (test code = ALT) 27 IUnit/L 12-78 N ALKALINE PHOSPHATASE TOTAL (test code = ALKP) 60 IUnit/L 45-117 N Note change in reference range due to change in reagent. CREATINE KINASE (CK)2019-11-30 20:42:00* Test Item Value Reference Range Interpretation Comments CREATINE KINASE (CK) (test code = CK) 738 IUnit/L 26-208 H BASIC METABOLIC [id number] 20:37:00* Test Item Value Reference Range Interpretation Comments SODIUM (test code = NA) 145 mmol/L 136-145 N POTASSIUM (test code = K) 4.2 mmol/L 3.5-5.1 N CHLORIDE (test code = CL) 116.0 mmol/L 98-107 H CARBON DIOXIDE (test code = CO2) mmol/L 21-32 ANION GAP (test code = GAP) 10-20 GLUCOSE (test code = GLU) mg/dL 74-106 BLOOD UREA NITROGEN (test code = BUN) mg/dL 7-18 GLOMERULAR FILTRATION RATE (test code = GFR) mL/min >=60 CREATININE (test code = CREAT) mg/dL 0.7-1.3 BUN/CREATININE RATIO (test code = BUN/CREA) 10-20 CALCIUM (test code = CA) mg/dL 8.5-10.1 HEPATIC FUNCTION [id number] 20:37:00* Test Item Value Reference Range Interpretation Comments TOTAL PROTEIN (test code = PROT) gram/dL 6.4-8.2 ALBUMIN (test code = ALB) g/dL 3.4-5.0 GLOBULIN (test code = GLOB) gram/dL 2.7-4.2 ALBUMIN/GLOBULIN RATIO (test code = A/G) 0.75-1.50 BILIRUBIN TOTAL (test code = BILT) mg/dL 0.0-1.0 BILIRUBIN DIRECT (test code = BILD) mg/dL 0.0-0.20 SGOT/AST (test code = AST) IUnit/L 15-37 SGPT/ALT (test code = ALT) IUnit/L 12-78 ALKALINE PHOSPHATASE TOTAL (test code = ALKP) IUnit/L 45-117 CREATINE KINASE (CK)2019-11-30 20:37:00* Test Item Value Reference Range Interpretation Comments CREATINE KINASE (CK) (test code = CK) IUnit/L 26-208 DILANTIN (PHENYTOIN)2019-11-30 13:04:00* Test Item Value Reference Range Interpretation Comments DILANTIN (PHENYTOIN) (test code = DIL) 2.0 ug/mL 10.0-20.0 L URINALYSIS [id number] 10:10:00* Test Item Value Reference Range Interpretation Comments UA COLOR (test code = COLU) YELLOW YELLOW UA APPEARANCE (test code = APPU) HAZY CLEAR A UA GLUCOSE DIPSTICK (test code = DGLUU) 300-500 (3+) mg/dL NEGATIVE UA BILIRUBIN DIPSTICK (test code = BILU) NEGATIVE NEGATIVE UA KETONE DIPSTICK (test code = KETU) NEGATIVE mg/dL NEGATIVE UA SPECIFIC GRAVITY (test code = SGU) >=1.030 1.001-1.035 UA BLOOD DIPSTICK (test code = DEE) 3+ (Large) NEGATIVE A UA PH DIPSTICK (test code = MIKA) 5.5 5.0-8.0 UA PROTEIN DIPSTICK (test code = PROU) 100 (2+) mg/dL Neg-15 UA UROBILINIOGEN DIPSTICK (test code = URO) 0.2 mg/dL 0.0-0.2 UA NITRITE DIPSTICK (test code = JIMBO) NEGATIVE NEGATIVE UA LEUKOCYTE ESTERASE DIPSTICK (test code = LEUU) NEGATIVE uL NEGA TIVE UA MICROSCOPIC NEEDED? (test code = UAMICRO) YES UA WBC (test code = WBCU) 0-5 per HPF 0-5 UA RBC (test code = RBCU) 3-5 per HPF 0-5 A UA EPITHELIAL CELLS (test code = EPIU) Few (2-5/hpf) per HPF Few UA BACTERIA (test code = BACU) FEW per HPF NONE UA MUCUS (test code = MUCU) FEW per LPF NONE-FEW UA AMORPHOUS SEDIMENT (test code = AMORU) MANY per LPF NONE A Urine Source? Clean CatchDRUGS OF ABUSE SCREEN [id number] 10:10:00* Test Item Value Reference Range Interpretation Comments UR MDMA (test code = MDMAQLU) NEGATIVE NEGATIVE URN COCAINE (test code = COCAURN) NEGATIVE NEGATIVE URN CANNABINOIDS (test code = CANNABURN) NEGATIVE <50 ng/mL URN AMPHETAMINE (test code = AMPHETURN) NEGATIVE NEGATIVE URN BARBITURATE (test code = BARBITURN) NEGATIVE NEGATIVE URN BENZODIAZEPINE (test code = BENZOURN) NEGATIVE NEGATIVE URN OPIATES (test code = OPIATURN) NEGATIVE NEGATIVE URN PHENCYCLIDINE (PCP) (test code = PHENCURN) NEGATIVE NEGATIV E URN METHADONE (test code = METHAURN) NEGATIVE <300 ng/mL Urine Source? Clean CatchURINALYSIS [id number] 10:07:00* Test Item Value Reference Range Interpretation Comments UA COLOR (test code = COLU) YELLOW YELLOW UA APPEARANCE (test code = APPU) HAZY CLEAR A UA GLUCOSE DIPSTICK (test code = DGLUU) 300-500 (3+) mg/dL NEGATIVE UA BILIRUBIN DIPSTICK (test code = BILU) NEGATIVE NEGATIVE UA KETONE DIPSTICK (test code = KETU) NEGATIVE mg/dL NEGATIVE UA SPECIFIC GRAVITY (test code = SGU) >=1.030 1.001-1.035 UA BLOOD DIPSTICK (test code = DEE) 3+ (Large) NEGATIVE A UA PH DIPSTICK (test code = MIKA) 5.5 5.0-8.0 UA PROTEIN DIPSTICK (test code = PROU) 100 (2+) mg/dL Neg-15 UA UROBILINIOGEN DIPSTICK (test code = URO) 0.2 mg/dL 0.0-0.2 UA NITRITE DIPSTICK (test code = JIMBO) NEGATIVE NEGATIVE UA LEUKOCYTE ESTERASE DIPSTICK (test code = LEUU) NEGATIVE uL NEGA TIVE UA MICROSCOPIC NEEDED? (test code = UAMICRO) UA WBC (test code = WBCU) per HPF 0-5 UA RBC (test code = RBCU) per HPF 0-5 UA EPITHELIAL CELLS (test code = EPIU) per HPF Few UA BACTERIA (test code = BACU) per HPF NONE Urine Source? Clean CatchDRUGS OF ABUSE SCREEN [id number] 10:07:00* Test Item Value Reference Range Interpretation Comments UR MDMA (test code = MDMAQLU) NEGATIVE NEGATIVE URN COCAINE (test code = COCAURN) NEGATIVE NEGATIVE URN CANNABINOIDS (test code = CANNABURN) NEGATIVE <50 ng/mL URN AMPHETAMINE (test code = AMPHETURN) NEGATIVE NEGATIVE URN BARBITURATE (test code = BARBITURN) NEGATIVE NEGATIVE URN BENZODIAZEPINE (test code = BENZOURN) NEGATIVE NEGATIVE URN OPIATES (test code = OPIATURN) NEGATIVE NEGATIVE URN PHENCYCLIDINE (PCP) (test code = PHENCURN) NEGATIVE NEGATIV E URN METHADONE (test code = METHAURN) NEGATIVE <300 ng/mL Urine Source? Clean CatchURINALYSIS [id number] 09:59:00* Test Item Value Reference Range Interpretation Comments UA COLOR (test code = COLU) YELLOW YELLOW UA APPEARANCE (test code = APPU) HAZY CLEAR A UA GLUCOSE DIPSTICK (test code = DGLUU) 300-500 (3+) mg/dL NEGATIVE UA BILIRUBIN DIPSTICK (test code = BILU) NEGATIVE NEGATIVE UA KETONE DIPSTICK (test code = KETU) NEGATIVE mg/dL NEGATIVE UA SPECIFIC GRAVITY (test code = SGU) >=1.030 1.001-1.035 UA BLOOD DIPSTICK (test code = DEE) 3+ (Large) NEGATIVE A UA PH DIPSTICK (test code = MIKA) 5.5 5.0-8.0 UA PROTEIN DIPSTICK (test code = PROU) 100 (2+) mg/dL Neg-15 UA UROBILINIOGEN DIPSTICK (test code = URO) 0.2 mg/dL 0.0-0.2 UA NITRITE DIPSTICK (test code = JIMBO) NEGATIVE NEGATIVE UA LEUKOCYTE ESTERASE DIPSTICK (test code = LEUU) NEGATIVE uL NEGA TIVE UA MICROSCOPIC NEEDED? (test code = UAMICRO) UA WBC (test code = WBCU) per HPF 0-5 UA RBC (test code = RBCU) per HPF 0-5 UA EPITHELIAL CELLS (test code = EPIU) per HPF Few UA BACTERIA (test code = BACU) per HPF NONE Urine Source? Clean CatchDRUGS OF ABUSE SCREEN [id number] 09:59:00* Test Item Value Reference Range Interpretation Comments UR MDMA (test code = MDMAQLU) NEGATIVE URN COCAINE (test code = COCAURN) <300 ng/mL URN CANNABINOIDS (test code = CANNABURN) <50 ng/mL URN AMPHETAMINE (test code = AMPHETURN) <1000 ng/mL URN BARBITURATE (test code = BARBITURN) <200 ng/mL URN BENZODIAZEPINE (test code = BENZOURN) <200 ng/mL URN OPIATES (test code = OPIATURN) <300 ng/mL URN PHENCYCLIDINE (PCP) (test code = PHENCURN) <25 ng/ mL URN METHADONE (test code = METHAURN) <300 ng/mL Urine Source? Clean CatchCOMPREHENSIVE METABOLIC [id number] 09:42:00* Test Item Value Reference Range Interpretation Comments SODIUM (test code = NA) 140 mmol/L 128-145 N POTASSIUM (test code = K) 4.2 mmol/L 3.5-5.1 N CHLORIDE (test code = CL) 102.0 mmol/L 98-107 N CARBON DIOXIDE (test code = CO2) 20.2 mmol/L 22-29 L ANION GAP (test code = GAP) 22 mmol/L 10-20 H GLUCOSE (test code = GLU) 305 mg/dL 70-110 H BLOOD UREA NITROGEN (test code = BUN) 13 mg/dL 7-22 N CREATININE (test code = CREAT) 1.61 mg/dL 0.55-1.3 H BUN/CREATININE RATIO (test code = BUN/CREA) 8.1 10-20 L TOTAL PROTEIN (test code = PROT) 6.6 gram/dL 6.1-7.8 N ALBUMIN (test code = ALB) 3.6 g/dL 3.3-4.4 N GLOBULIN (test code = GLOB) 3.0 G/DL 1-10 N ALBUMIN/GLOBULIN RATIO (test code = A/G) 1.2 0.75-1.50 N CALCIUM (test code = CA) 7.8 mg/dL 8.0-10.5 L BILIRUBIN TOTAL (test code = BILT) 0.10 mg/dL 0.2-1.2 L SGOT/AST (test code = AST) 56 U/L 10-39 H SGPT/ALT (test code = ALT) 42 U/L 10-69 N ALKALINE PHOSPHATASE TOTAL (test code = ALKP) 76 U/L 50-139 N COMPREHENSIVE METABOLIC [id number] 09:40:00* Test Item Value Reference Range Interpretation Comments SODIUM (test code = NA) 140 mmol/L 128-145 N POTASSIUM (test code = K) 4.2 mmol/L 3.5-5.1 N CHLORIDE (test code = CL) 102.0 mmol/L 98-107 N CARBON DIOXIDE (test code = CO2) 20.2 mmol/L 22-29 L ANION GAP (test code = GAP) 22 mmol/L 10-20 H GLUCOSE (test code = GLU) 305 mg/dL 70-110 H BLOOD UREA NITROGEN (test code = BUN) 13 mg/dL 7-22 N CREATININE (test code = CREAT) 1.61 mg/dL 0.55-1.3 H BUN/CREATININE RATIO (test code = BUN/CREA) 8.1 10-20 L TOTAL PROTEIN (test code = PROT) gram/dL 6.4-8.2 ALBUMIN (test code = ALB) g/dL 3.4-5.0 GLOBULIN (test code = GLOB) G/DL 1-10 ALBUMIN/GLOBULIN RATIO (test code = A/G) 0.75-1.50 CALCIUM (test code = CA) 7.8 mg/dL 8.0-10.5 L BILIRUBIN TOTAL (test code = BILT) mg/dL 0.0-1.0 SGOT/AST (test code = AST) IUnit/L 15-37 SGPT/ALT (test code = ALT) IUnit/L 12-78 ALKALINE PHOSPHATASE TOTAL (test code = ALKP) IUnit/L 45-117 - CT HEAD/BRAIN W/O [id number] 09:23:00 Name: MATILDE ZULUAGA [facility] FSED : 1990 Age/S: 29 / M [address] [facility] Unit #: [id number] Loc: [address] Phys: Danial Pereyra MD [place], [place] [address] Acct: [id number] Dis Date: Status: REG ER PHONE #: Exam Date: 11/30/2019919 FAX #: Reason: seizure EXAMS: CPT CODE: [id number] CT HEAD/BRAIN W/O CONT [id number] HISTORY: seizure TECHNIQUE: Noncontrast 2.[address] of the head. Examination acquired within 24 hours of arrival. Automated exposure control for dose reduction. COMPARISON: Noncontrast CT brain May 31, 2019 FINDINGS: No lacerations or contusions of the scalp or facial soft tissues. Postsurgical changes of left frontal craniotomy are redemonstrated. No acute hemorrhage. No intracranial mass, mass effect, or midline shift. 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 No cortical atrophy. No signs of white matter small-vessel disease. Extensive basal ganglia calcifications appear similar to the previous examination. No hydrocephalus.. No extra-axial fluid collection. There is polypoid mucosal thickening in the right maxillary sinus which was not seen on the prior exam. Mastoid air cells and middle ear cavities are clear. Orbital contents are unremarkable. IMPRESSION: Newly visualized polypoid mucosal thickening in the right maxillary sinus. Findings are otherwise grossly unchanged from May 2019. Location: [facility] Gina ctronically Signed by Myles Delaney MD on 11/30/2019 at 0923 Reported and signed by: Myles Delaney MD PAGE 1 Signed Report (CONTINUED) Name: MATILDE ZULUAGA [facility] FSED : 1990 Age/S: 29 / M [address] [facility] [address] [facility] [address] Unit #: [id number] Loc: [address] Phys: Danial Pereyra MD [place] [address] Acct: [id number] Dis Date: Status: REG ER PHONE #: Exam Date: [id number] FAX #: Reason: seizure EXAMS: CPT CODE: [id number] CT HEAD/BRAIN W/O CONT [id number] <Continued> CC: Katlyn Howard MD; Danial Pereyra MD Technologist:ARSALAN WREN RT(R)(CT) CTDI: DLP: Trnscb Date/Time: 11/30/2019 (922) [email or web address] Orig Print D/T: S: 11/30/2019 (925) PAGE 2 Signed Report CBC W/AUTO [id number] 08:55:00* Test Item Value Reference Range Interpretation Comments WHITE BLOOD CELL (test code = WBC) 6.7 K/mm3 4.5-12.5 N RED BLOOD CELL (test code = RBC) 4.81 mill/mm3 4.0-5.8 N HEMOGLOBIN (test code = HGB) 14.4 gram/dL 13.0-17.5 N HEMATOCRIT (test code = HCT) 43.9 % 42.0-52.0 N MEAN CELL VOLUME (test code = MCV) 91.3 fL 80-98 N MEAN CELL HGB (test code = MCH) 29.9 picogram 27.0-33.0 N MEAN CELL HGB CONCETRATION (test code = MCHC) 32.8 gram/dL 33.0-36. 0 L RED CELL DISTRIBUTION WIDTH (test code = RDW) 12.8 % 11.6-16. 2 N RED CELL DISTRIBUTION WIDTH SD (test code = RDW-SD) 43.8 fL 37 .0-51.0 N PLATELET COUNT (test code = PLT) 293 K/mm3 150-450 N MEAN PLATELET VOLUME (test code = MPV) 9.9 fL 6.7-11.0 N NEUTROPHIL % (test code = NT%) 60.4 % 39.0-69.0 N LYMPHOCYTE % (test code = LY%) 32.3 % 25.0-55.0 N MONOCYTE % (test code = MO%) 1.9 % 0.0-10.0 N EOSINOPHIL % (test code = EO%) 0.7 % 0.0-5.0 N BASOPHIL % (test code = BA%) 0.1 % 0.0-1.0 N NEUTROPHIL # (test code = NT#) 4.03 K/mm3 1.8-7.7 N LYMPHOCYTE # (test code = LY#) 2.16 K/mm3 1.0-5.0 N MONOCYTE # (test code = MO#) 0.13 K/mm3 0-0.8 N EOSINOPHIL # (test code = EO#) 0.05 K/mm3 0.0-0.5 N BASOPHIL # (test code = BA#) 0.01 K/mm3 0.0-0.2 N MANUAL DIFF REQUIRED (test code = MDIFF) NO Hemoglobin [id number] 11:13:00* Test Item Value Reference Range Interpretation Comments Hemoglobin A1c (test code = 4548-4) 5.7 % 4.3-6.1 Estimated Average Glucose (test code = 50070456) 117 mg/dL 70-11 0 H Lab Interpretation (test code = 31232-1) [facility]normal [facility] 24-[id number] 09:57:00* Test Item Value Reference Range Interpretation Comments Vit D, 25-Hydroxy (test code = 48425851) 17.6 ng/mL 30-100 L Vitamin D Interpretation (test code = 37933538) Deficient Suffic ient A Sufficient: >30.0Insufficient: 20.0 - 29.9Deficient: <20.0 Lab Interpretation (test code = 55611-3) [facility]normal [id number] 08:08:00* Test Item Value Reference Range Interpretation Comments WBC (test code = 6690-2) 4.5 K/uL 4.5-12 RBC (test code = 789-8) 4.82 4.60- 6.20 M/uL Hemoglobin (test code = 718-7) 14.7 g/dL 14-18 Hematocrit (test code = 4544-3) 44.1 % 40-54 MCV (test code = 787-2) 91.5 fL 82-92 MCH (test code = 785-6) 30.5 pg 27-31 MCHC (test code = 786-4) 33.3 g/dL 32-36 RDW (test code = 44425-2) 48.2 fL 35.1-43.9 H Platelet (test code = 777-3) 240 K/uL 150-400 Mean Platelet Volume (test code = 78763-8) 11.0 fL 9.4-12.4 Percent NRBC (test code = 70694964) 0.0 % Neutrophil (test code = 770-8) 56.5 % 34-67.9 Lymphs (test code = 736-9) 33.0 % 21.8-50 Monocytes (test code = 5905-5) 8.8 % 5.3-12 Eos (test code = 713-8) 1.1 % 0.8-5 Basos (test code = 706-2) 0.4 % 0.2-1.2 Immature Granulocytes (test code = 83888351) 0.2 % 0-0.5 Neutrophils (Absolute) (test code = 19481474) 2.55 K/uL 1.78-5.3 6 Lymphs (Absolute) (test code = 75664453) 1.49 K/uL 1.32-3.57 Monocytes(Absolute) (test code = 53490974) 0.40 K/uL 0.3-0.82 Eos (Absolute) (test code = 56100252) 0.05 K/uL 0.04-0.54 Baso (Absolute) (test code = 13454562) 0.02 K/uL 0.01-0.08 Immature Grans (Abs) (test code = 27831940) 0.01 K/uL 0-0.03 Absolute NRBC (test code = 62681284) 0.00 K/uL Lab Interpretation (test code = 40213-3) Abnormal [facility] [Thyroid Stimulating Hormone]2019-11-17 08:01:00* Test Item Value Reference Range Interpretation Comments TSH (test code = 66545385) 1.10 0.45- 5.33 uIU/mL Lab Interpretation (test code = 90268-6) [facility] [id number] 07:58:00* Test Item Value Reference Range Interpretation Comments Sodium (test code = 2951-2) 141 mmol/L 136-145 Potassium (test code = 2823-3) 4.1 mmol/L 3.5-5.1 Chloride (test code = 2075-0) 104 mmol/L 98-107 CO2 (test code = 51624045) 27 mmol/L 21-31 Urea Nitrogen (test code = 01406298) 17.0 mg/dL 7-25 Creatinine (test code = 58226768) 1.0 mg/dL 0.7-1.3 Glucose (test code = 56875451) 84 mg/dL 70-110 Calcium (test code = 47233850) 9.3 mg/dL 8.6-10.3 eGFR If Africn Am (test code = 82695417) >90 >=90 mL/min/1 .73 m2 Anion Gap (test code = 48669870) 10 mmol/L 5-16 Lab Interpretation (test code = 55154-5) Normal [id number] 07:58:00* Test Item Value Reference Range Interpretation Comments Cholesterol (test code = 2093-3) 240.0 mg/dL <=200.0 H Triglyceride (test code = 62395276) 72 mg/dL <150 HDL (test code = 2085-9) 46.0 mg/dL See Reference Range Narrative . LDL (test code = 18799-3) 180 mg/dL <100 H Op timal: < 100.0 mg/dLNear Optimal: 120-129 mg/dLBorderline: 130-159 mg/dLHigh: 160-189 mg/dLVery High: >=190 mg/dL Patient Fasting? (test code = 12438894) Yes Lab Interpretation (test code = 08646-3) Abnormal [facility] [id number] 07:58:00* Test Item Value Reference Range Interpretation Comments Bilirubin, Total (test code = 2885-2) 0.4 mg/dL 0.2-1.2 Alkaline Phosphatase (test code = 72683142) 56 U/L 34-104 AST (test code = 68825260) 11 U/L 13-39 L Direct Bilirubin (test code = 1968-7) 0.1 mg/dL 0-0.2 ALT (test code = 12075455) 8 U/L 7-52 Albumin (test code = 75124-4) 4.4 g/dL 4.2-5.5 Lab Interpretation (test code = 11695-2) Abnormal [id number] 01:23:00* Test Item Value Reference Range Interpretation Comments Color (test code = 59816829) Maria Esther Colorless, Straw, Yellow A Clarity (test code = 45185809) Cloudy Clear A Spec [place], Ur (test code = 73382185) 1.035 1.001-1.035 pH, Ur (test code = 34660994) 5.0 5.0-8.0 Protein, Ur (test code = 36716864) 1+ Negative mg/dL A Glucose, Ur (test code = 28475426) Negative Negative mg/dL Ketone, Ur (test code = 87260846) 1+ Negative mg/dL A Bilirubin, Ur (test code = 73460702) Negative Negative mg/dL Nitrite, Ur (test code = 82050062) Negative Negative Leukocyte (test code = 73090891) Negative Negative mg/dL Blood, Ur (test code = 81263240) Negative Negative mg/dL RBC (test code = 65563244) 5 0- 4 /HPF H WBC (test code = 55369052) 1 0- 5 /HPF Epithelial Cell (test code = 76275693) <1 <=1 /HPF Mucous (test code = 87772083) Present None seen /HPF A Bacteria (test code = 75365909) Few None seen /HPF A Calc Ox Malissa (test code = 29450551) Present None seen /HPF A Amorphous Sed (test code = 07212127) Present None seen /HPF A Urobilinogen, Ur (test code = 92828622) 1.0 EU/dL <1.0 A Lab Interpretation (test code = 64272-4) Abnormal [facility] [id number] 17:51:00* Test Item Value Reference Range Interpretation Comments LACTIC ACID (test code = LACT) 0.7 MMOL/L 0.4-1.9 N - CT HEAD/BRAIN W/O [id number] 17:48:00 Name: MATILDE ZULUAGA FSED : 1990 Age/S: 28 / M [address] Unit #: [id number] Loc: [address] Phys: Kwabena Lezama DO [place], [place] [address] Acct: [id number] Dis Date: Status: REG ER PHONE #: Exam Date: 05/31/2019 2309 FAX #: Reason: Seizure EXAMS: CPT CODE: [id number] CT HEAD/BRAIN W/O CONT 52369 REASON FOR EXAM: Seizure EXAM ORDER DATE: 05/31/2019 5:15 PM Ordering M.D.: Kwabena Lezama DO PROCEDURE: - CT HEAD/BRAIN W/O CONT COMPARISON: FINDINGS: CT images of the brain were obtained without IV contrast. Dose modulation, iterative reconstruction, and/or weight based adjustment of the MA/KV was utilized to reduce the radiation dose to as low as reasonably achievable. Mild patchy low densities appearance of the paraventricular region noted consistent with nonspecific white matter disease. The huynh-white matter delineation is unremarkable. The ventricles, cisterns, and sulci are unremarkable. There is no evidence of hemorrhage, mass, mass effect. There is no evidence of acute infarct. Diffuse physiologic calcification in the basal ganglia IMPRESSION: Nonspecific deep white matter disease. Chronic left frontal lobe encephalomalacia with associated craniotomy changes at 1748 Reported and signed by: Scout Sawant M.D. CC: Katlyn Howard MD; Kwabena Lezama DO Technologist:Adarsh Mendez RT(R),CT CTDI: DLP: Trnscb Date/Time: 05/31/2019 (1748) tLUDIVINA Orig Print D/T: S: 05/31/2019 (0925) PAGE 1 Signed Report BASIC METABOLIC [id number] 17:39:00* Test Item Value Reference Range Interpretation Comments SODIUM (test code = NA) 143 mmol/L 128-145 N POTASSIUM (test code = K) 3.5 mmol/L 3.5-5.1 N CHLORIDE (test code = CL) 105.0 mmol/L 98-107 N CARBON DIOXIDE (test code = CO2) 27.2 mmol/L 22-29 N ANION GAP (test code = GAP) 14 mmol/L 10-20 N GLUCOSE (test code = GLU) 103 mg/dL 70-110 N BLOOD UREA NITROGEN (test code = BUN) 15 mg/dL 7-22 N GLOMERULAR FILTRATION RATE (test code = GFR) > 60 mL/min >=60 Estimated GFR by using Modified MDRD formula.Chronic kidney disease is defined as either kidney damageor GFR <60 mL/min/1.73 m2 for >3 months. CREATININE (test code = CREAT) 0.94 mg/dL 0.55-1.3 N BUN/CREATININE RATIO (test code = BUN/CREA) 16.0 10-20 N CALCIUM (test code = CA) 8.7 mg/dL 8.0-10.5 N HEPATIC FUNCTION [id number] 17:39:00* Test Item Value Reference Range Interpretation Comments TOTAL PROTEIN (test code = PROT) 6.9 gram/dL 6.1-7.8 N ALBUMIN (test code = ALB) 4.0 g/dL 3.3-4.4 N GLOBULIN (test code = GLOB) 2.9 G/DL 1-10 N ALBUMIN/GLOBULIN RATIO (test code = A/G) 1.4 0.75-1.50 N BILIRUBIN TOTAL (test code = BILT) 0.50 mg/dL 0.2-1.2 N BILIRUBIN DIRECT (test code = BILD) 0.10 mg/dL 0.0-0.30 N SGOT/AST (test code = AST) 16 U/L 10-39 N SGPT/ALT (test code = ALT) 14 U/L 10-69 N ALKALINE PHOSPHATASE TOTAL (test code = ALKP) 52 U/L 50-139 N CREATINE KINASE (CK)2019-05-31 17:39:00* Test Item Value Reference Range Interpretation Comments CREATINE KINASE (CK) (test code = CK) 517 U/L 39-308 H [id number] 17:39:00* Test Item Value Reference Range Interpretation Comments LIPASE (test code = LIP) 94 Unit/L 144-286 L [id number] 17:39:00* Test Item Value Reference Range Interpretation Comments TROPONIN-I (test code = TROPI) <0.015 ng/mL 0.00-0.056 N [id number] 17:39:00* Test Item Value Reference Range Interpretation Comments ALCOHOL (test code = ALC) < 3 mg/dL 0.0-3.0 N -- INTERPRETIVE DATA NOTE: POSITIVE SCREENING RESULTS SHOULD BE CONSIDERED PRESUMPTIVE.WHEN COLLECTED FOR MEDICAL PURPOSES ONLY. SPECIMEN WILL NOTBE COLLECTED BY CHAIN OF CUSTODY.IF A CONFIRMATION OF POSITIVE RESULTS IS DESIRED, ACONFIRMATION TEST MUST BE REQUESTED BY THE PHYSICIAN AT ANADDITIONAL CHARGE TO THE PATIENT. BASIC METABOLIC [id number] 17:33:00* Test Item Value Reference Range Interpretation Comments SODIUM (test code = NA) 143 mmol/L 128-145 N POTASSIUM (test code = K) 3.5 mmol/L 3.5-5.1 N CHLORIDE (test code = CL) 105.0 mmol/L 98-107 N CARBON DIOXIDE (test code = CO2) 27.2 mmol/L 22-29 N ANION GAP (test code = GAP) 14 mmol/L 10-20 N GLUCOSE (test code = GLU) 103 mg/dL 70-110 N BLOOD UREA NITROGEN (test code = BUN) 15 mg/dL 7-22 N GLOMERULAR FILTRATION RATE (test code = GFR) > 60 mL/min >=60 Estimated GFR by using Modified MDRD formula.Chronic kidney disease is defined as either kidney damageor GFR <60 mL/min/1.73 m2 for >3 months. CREATININE (test code = CREAT) 0.94 mg/dL 0.55-1.3 N BUN/CREATININE RATIO (test code = BUN/CREA) 16.0 10-20 N CALCIUM (test code = CA) 8.7 mg/dL 8.0-10.5 N HEPATIC FUNCTION [id number] 17:33:00* Test Item Value Reference Range Interpretation Comments TOTAL PROTEIN (test code = PROT) gram/dL 6.4-8.2 ALBUMIN (test code = ALB) g/dL 3.4-5.0 GLOBULIN (test code = GLOB) G/DL 1-10 ALBUMIN/GLOBULIN RATIO (test code = A/G) 0.75-1.50 BILIRUBIN TOTAL (test code = BILT) mg/dL 0.0-1.0 BILIRUBIN DIRECT (test code = BILD) mg/dL 0.0-0.20 SGOT/AST (test code = AST) IUnit/L 15-37 SGPT/ALT (test code = ALT) IUnit/L 12-78 ALKALINE PHOSPHATASE TOTAL (test code = ALKP) IUnit/L 45-117 CREATINE KINASE (CK)2019-05-31 17:33:00* Test Item Value Reference Range Interpretation Comments CREATINE KINASE (CK) (test code = CK) U/L 39-308 [id number] 17:33:00* Test Item Value Reference Range Interpretation Comments LIPASE (test code = LIP) U/L 73.0-393.0 [id number] 17:33:00* Test Item Value Reference Range Interpretation Comments TROPONIN-I (test code = TROPI) ng/mL 0-0.045 [id number] 17:33:00* Test Item Value Reference Range Interpretation Comments ALCOHOL (test code = ALC) mg/dL 0-3 CBC W/O [id number] 17:22:00* Test Item Value Reference Range Interpretation Comments WHITE BLOOD CELL (test code = WBC) 4.6 K/mm3 4.5-12.5 N RED BLOOD CELL (test code = RBC) 4.39 mill/mm3 4.0-5.8 N HEMOGLOBIN (test code = HGB) 13.0 gram/dL 13.0-17.5 N HEMATOCRIT (test code = HCT) 39.7 % 42.0-52.0 L MEAN CELL VOLUME (test code = MCV) 90.4 fL 80-98 N MEAN CELL HGB (test code = MCH) 29.6 picogram 27.0-33.0 N MEAN CELL HGB CONCETRATION (test code = MCHC) 32.7 gram/dL 33.0-36. 0 L RED CELL DISTRIBUTION WIDTH (test code = RDW) 13.2 % 11.6-16. 2 N RED CELL DISTRIBUTION WIDTH SD (test code = RDW-SD) 44.1 fL 37 .0-51.0 N PLATELET COUNT (test code = PLT) 238 K/mm3 150-450 N MEAN PLATELET VOLUME (test code = MPV) 10.1 fL 6.7-11.0 N
[2020-04-09] MEDS ORDERED: PHENYTEK200 MG PO (01:03)
[2020-04-09] MEDS ORDERED: VIMPAT200 MG PO (01:03)
[2020-04-09] MEDS ORDERED: FYCOMPA PO (01:03)
[2020-04-09] MEDS ORDERED: LORATADINE10 MG PO (01:03)
[2020-04-09] MEDS ORDERED: LISINOPRIL10 MG PO (01:03)
[2020-04-09] MEDS ORDERED: PROPRANOLOL HCL60 MG PO (01:03)
[2020-04-09] MEDS ORDERED: LEVETIRACETAM1000 MG PO (01:03)
--- NOTE | 2020-04-09 01:30 | NUR ---
Received patient from ER via wheelchair. Pt AAOx3 with confusion. Able to make needs known. Resp. even and unlabored. No SOB/ resp distress noted. Pt noted to have left arm in sling for a dislocated shoulder d/t a fall. Denies any pain or discomfort at this time. Pt is unsteady and requires assist x1 to ambulate. Non skid socks applied. Pt has cellphone, debit card, $20 and some keys. Pt was offered to lock away valuables and agreed but kept cell phone at bedside. Belongings given to security. Pt assisted into hospital gown. Skin intact. Urinal given. Pt orientated to call light. Instructed to use call light for assistance. Bed in locked and low position. Call light in reach.
--- NOTE | 2020-04-09 08:06 | NUR ---
Received patient lying in bed with eyes closed, Respiration even and unlabored without SOB. Bed alarm on. Call light in reach.
[2020-04-09] MEDS ORDERED: HYDRALAZINE HCL 20 MG/ML VIAL IV PRN (09:00)
[2020-04-09] MEDS: LACOSAMIDE 200 MG PO SCH ×3 (09:00→21:00)
[2020-04-09] MEDS ORDERED: ONDANSETRON HCL INJ 2MG/ML 2ML 2 MG/ML VIAL IV PRN (09:00)
[2020-04-09] MEDS: PERAMPANEL 12 MG PO SCH (09:00)
[2020-04-09] MEDS ORDERED: ACETAMINOPHEN 325 MG TAB PO PRN (09:00)
[2020-04-09] MEDS: LISINOPRIL 10 MG TAB PO SCH (09:47)
[2020-04-09] MEDS: LEVETIRACETAM 500 MG TAB PO SCH ×3 (09:56→21:12)
[2020-04-09] MEDS: DEXTROSE 5%/0.9% SOD CHL 1,000 ML IV SCH (09:57)
[2020-04-09 10:03] LABS: CHOL/HDL RATIO 5.4 (3.9-4.7)
[2020-04-09] MEDS: PROPRANOLOL HCL 60 MG ER CAP PO SCH ×2 (10:08→18:03)
[2020-04-09 10:23] LABS: THYROID STIMULATING HORMONE 2.148 uIU/mL (0.350-4.940)
[2020-04-09] MEDS ORDERED: GADOBENATE DIMEGLUMINE 1 ML IV ONE (10:43)
--- NOTE | 2020-04-09 15:07 | Diagnostic Imaging Report ---
History: Seizure Comparison studies: CT head 04/08/2020 Technique: Pre-contrast: Sagittal T2; axial T1-IR, MPGR, DWI, T2 FLAIR Post-contrast: axial and coronal T1. Intravenous contrast: 18 cc of MultiHance Findings: Scalp: Left frontal anterior parietal craniotomy changes Bone marrow: Normal in signal intensity. Brain sulci: Appropriate for age. Ventricles: Mild ex vacuo dilation of the left anterior lateral ventricle. The remaining ventricles are normal in size . No hydrocephalus. Extra-axial: No masses, fluid collections or hemorrhage. Pachymeningeal enhancement underlying the left frontal craniotomy. Parenchyma: Cortical based encephalomalacia at the left superior and mid frontal gyrus with underlying white matter volume loss extending to the anterior cingulate gyrus and body of the corpus callosum. Linear enhancement at the left anterior cingulate gyrus. Punctate enhancement at the bilateral right more than left superior basal ganglia region/caudothalamic grooves, with subtle FLAIR signal intensity changes. Linear Blooming at the left superior and mid frontal gyri, related to hemosiderin staining. Blooming artifact also noted at the right more than left lentiform nuclei and right anterior thalamus, secondary to calcifications. No masses, acute hemorrhage or acute vascular insults. Suprasellar region: No abnormalities. Craniocervical junction: No abnormalities. Patent foramen magnum. No Chiari one malformation.. Vessels: Normal flow-voids in the arteries and sinuses. Incidental findings: No mucosal thickening of the right maxillary sinus IMPRESSION: 1. No acute intracranial abnormality. 2. Left frontoparietal craniotomy with underlying encephalomalacia at the ipsilateral superior, mid, and cingulate frontal gyri, extending into the anterior body of the corpus callosum. Linear enhancement at the anterior left cingulate gyrus, without mass effect, likely treatment related. 3. Subtle punctate enhancement at the right more than left superior basal ganglia/ caudothalamic grooves, related to blooming artifact and calcifications, likely related to remote infection. Signed by: DR Jun Hester M.D. on 04/09/2020 3:04 PM
[2020-04-10] VITALS (9 sets, daily range): BP systolic 119–143; BP diastolic 77–96
[2020-04-10] MEDS: DEXTROSE 5%/0.9% SOD CHL 1,000 ML IV SCH (03:29)
[2020-04-10 05:50] LABS: BASOPHILS % 0.2 % (0.0-1.0); EOSINOPHILS # (AUTO) 0.1 (0.0-0.4); EOSINOPHILS % 1.5 % (0.0-6.0); HEMATOCRIT 43.1 % (38.2-49.6); HEMOGLOBIN 13.7 g/dL (14.0-18.0); LYMPHOCYTES # (AUTO) 1.1 (1.0-3.2); LYMPHOCYTES % 25.2 % (18.0-39.1); MEAN CORPUSCULAR HEMOGLOBIN 28.8 pg (28-32); MEAN CORPUSCULAR HGB CONC 31.8 g/dL (31-35); MEAN CORPUSCULAR VOLUME 90.5 fL (81-99); MONOCYTES # (AUTO) 0.6 (0.2-0.8); MONOCYTES % 12.2 % (4.4-11.3); NEUTROPHILS # (AUTO) 2.7 (2.1-6.9); NEUTROPHILS % 60.7 % (38.7-80.0); PLATELET COUNT 259 x10e3/uL (140-360); RED BLOOD COUNT 4.76 x10e6/uL (4.3-5.7); RED CELL DISTRIBUTION WIDTH 13.1 % (11.7-14.4)
[2020-04-10 06:24] LABS: ALANINE AMINOTRANSFERASE 8 IU/L (0-55); ALBUMIN 3.7 g/dL (3.5-5.0); ALBUMIN/GLOBULIN RATIO 1.3 (0.8-2.0); ALKALINE PHOSPHATASE 66 IU/L (40-150); ANION GAP 11.9 mmol/L (8-16); BLOOD UREA NITROGEN 8 mg/dL (7-26); BUN/CREATININE RATIO 10 (6-25); CALCIUM 8.7 mg/dL (8.4-10.2); CARBON DIOXIDE 25 mmol/L (22-29); CHLORIDE 106 mmol/L (98-107); CREATININE, SERUM 0.79 mg/dL (0.72-1.25); EST GLOMERULAR FILTRATION RATE > 60 ML/MIN (60-); GLUCOSE 79 mg/dL (74-118); POTASSIUM 3.9 mmol/L (3.5-5.1); SODIUM 139 mmol/L (136-145)
[2020-04-10 06:36] LABS: PHENYTOIN (DILANTIN) 24.73 ug/mL (10-20)
--- NOTE | 2020-04-10 07:05 | NUR ---
Received patient lying in bed with eyes closed, Respiration even and unlabored without SOB. Bed alarm on. Call light in reach.
[2020-04-10] MEDS: SODIUM CHLORIDE 0.9% 1000ML 1,000 ML IV SCH ×2 (08:00→21:24)
--- NOTE | 2020-04-10 08:26 | NUR ---
Spoke with Dr. Kiser and notified about the consult and dilantin level.
[2020-04-10] MEDS: PERAMPANEL 12 MG PO SCH (09:00)
[2020-04-10] MEDS: LACOSAMIDE 200 MG PO SCH ×3 (09:00→19:00)
[2020-04-10] MEDS: PROPRANOLOL HCL 60 MG ER CAP PO SCH ×2 (09:55→16:34)
[2020-04-10] MEDS: LISINOPRIL 10 MG TAB PO SCH (09:55)
[2020-04-10] MEDS: LEVETIRACETAM 500 MG TAB PO SCH ×3 (09:55→20:36)
[2020-04-10] MEDS: LACTULOSE SYRUP 20 GM/30 ML UDC PO SCH (16:34)
--- NOTE | 2020-04-10 19:02 | NUR ---
Report given to night coordinator. Respiration even and unlabored without SOB. Call light in reach.
[2020-04-10] MEDS: ATORVASTATIN 20 MG TAB PO SCH (20:37)
[2020-04-11] VITALS (8 sets, daily range): BP systolic 98–139; BP diastolic 64–85
--- NOTE | 2020-04-11 04:50 | Consultation ---
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 The patient presented with ataxia, dizziness, stumbling, slurred speech. He was found to have a high Dilantin level. He was admitted for further evaluation. The patient had an MRI of the brain, which shows old changes in and encephalomalacia. PAST MEDICAL HISTORY: Hypertension, seizures, and history of encephalitis. SOCIAL HISTORY: History of traumatic brain injury in the past. He sometimes uses marijuana. FAMILY HISTORY: Unknown. REVIEW OF SYSTEMS: A complete review of system, 14-point is negative otherwise. PHYSICAL EXAMINATION: VITAL SIGNS: The patient's temperature , respiratory rate , pulse 80, blood pressure 121/60. HEAD AND NECK: No meningeal signs. LUNGS: Good air entry. ABDOMEN: Soft. EXTREMITIES: Good pulses. NEUROLOGIC: The patient is alert. He follows commands. He is slightly sleepy, ataxic. No lateralized weakness. Sensory was difficult to assess. Deep tendon reflexes were 3. Plantars were flexor. ASSESSMENT AND PLAN: Dilantin toxicity. We will keep Dilantin on hold and restart at a lower dose after Dilantin level comes back to normal. An MRI of the brain as above. We will continue the other antiepileptic medications with same dose including Fycompa, lacosamide, and Keppra. He is on neuro checks and seizure precautions. We will check a magnesium level and urinalysis and rule out any ongoing infections or metabolic abnormalities and correct. We will start him on maintaining him on folate and vitamin B12 as well as thiamine. The patient was counseled about avoiding any drug abuse. He understands that he should not drive or operate any heavy machinery. He understands the implications of [place] laws for seizures and no driving for 6 months after the last time he had a seizure. Akin Kiser MD AM/SHANNAN /[id number]
--- NOTE | 2020-04-11 08:29 | NUR ---
BEDSIDE SHIFT REPORT RECEIVED FROM VENDER RN. PT AROUSABLE TO VOICE, IN STABLE CONDITION. WILL CONTINUE TO MONITOR. Addendum: 04/11/20 at 0831 by Wolfgang Moore RN REPORT RECEIVED AT 0650
--- NOTE | 2020-04-11 08:36 | NUR ---
SYLVAIN SEQUEIRA SAW PT AT BEDSIDE. SHE STATES PT IS IMPROVED FROM YESTERDAY AND THAT PT NEEDS TO BE EVALUATED BY PHYSICAL THERAPY TODAY; AFTERWARDS, SHE WILL CONSULT WITH NEUROLOGY.
[2020-04-11] MEDS: LACOSAMIDE 200 MG PO SCH ×3 (09:00→20:26)
[2020-04-11] MEDS: LEVETIRACETAM 500 MG TAB PO SCH ×3 (10:24→20:26)
[2020-04-11] MEDS: PROPRANOLOL HCL 60 MG ER CAP PO SCH ×2 (10:24→16:04)
[2020-04-11] MEDS: PERAMPANEL 12 MG PO SCH (10:24)
[2020-04-11] MEDS: LISINOPRIL 10 MG TAB PO SCH (10:26)
[2020-04-11] MEDS: LACTULOSE SYRUP 20 GM/30 ML UDC PO SCH ×2 (10:26→16:04)
[2020-04-11] MEDS ORDERED: ONDANSETRON HCL 4 MG ORAL DISINTEGRATING TAB PO PRN (12:45)
[2020-04-11] MEDS ORDERED: LIPITOR20 MG PO (13:30)
[2020-04-11 14:57] LABS: BASOPHILS % 0.4 % (0.0-1.0); EOSINOPHILS % 0.2 % (0.0-6.0); HEMOGLOBIN 14.4 g/dL (14.0-18.0); LYMPHOCYTES # (AUTO) 0.7 (1.0-3.2); LYMPHOCYTES % 14.3 % (18.0-39.1); MEAN CORPUSCULAR HEMOGLOBIN 29.3 pg (28-32); MEAN CORPUSCULAR HGB CONC 32.7 g/dL (31-35); MEAN CORPUSCULAR VOLUME 89.4 fL (81-99); MONOCYTES # (AUTO) 0.4 (0.2-0.8); MONOCYTES % 7.5 % (4.4-11.3); NEUTROPHILS # (AUTO) 3.7 (2.1-6.9); NEUTROPHILS % 77.2 % (38.7-80.0); PLATELET COUNT 238 x10e3/uL (140-360); RED BLOOD COUNT 4.92 x10e6/uL (4.3-5.7)
[2020-04-11 15:15] LABS: ALANINE AMINOTRANSFERASE 9 IU/L (0-55); ALBUMIN 3.7 g/dL (3.5-5.0); ALBUMIN/GLOBULIN RATIO 1.2 (0.8-2.0); ALKALINE PHOSPHATASE 79 IU/L (40-150); BLOOD UREA NITROGEN 8 mg/dL (7-26); BUN/CREATININE RATIO 11 (6-25); CARBON DIOXIDE 26 mmol/L (22-29); CHLORIDE 105 mmol/L (98-107); CREATININE, SERUM 0.76 mg/dL (0.72-1.25); EST GLOMERULAR FILTRATION RATE > 60 ML/MIN (60-); GLUCOSE 93 mg/dL (74-118); SODIUM 141 mmol/L (136-145)
[2020-04-11 15:23] LABS: PHENYTOIN (DILANTIN) 22.62 ug/mL (10-20)
--- NOTE | 2020-04-11 19:24 | NUR ---
Resumed care of patient. Patient awake and resting in bed, no s/s of distress at this time. Bed locked and in low position, side rails up x3, alarm on. Call light placed within reach. All safety measures in place. Will continue to monitor.
--- NOTE | 2020-04-11 20:10 | Progress Note ---
DATE: 04/10/2020 SUBJECTIVE: No seizures, better today, improving. His Dilantin level is at 24. Otherwise, no other complaints. REVIEW OF SYSTEMS: As above. MEDICATIONS: Per list including Keppra 1000 b.i.d., lacosamide 200 b.i.d., as well as Fycompa 12 mg daily. PHYSICAL EXAMINATION: VITAL SIGNS: Temperature 98, respiratory rate 16, blood pressure 121/60. HEAD AND NECK: No meningeal signs. LUNGS: Fair air entry. ABDOMEN: Soft. NEUROLOGIC: The patient is alert, follows commands. No lateralized weakness, ataxia noted. Plantars are flexor. Deep tendon reflexes were 3. ASSESSMENT: Improving Dilantin level. If level goes back to normal by tomorrow, we will restart him at 300 mg daily of Dilantin. Continue with other antiepileptic medications same dose. No driving discussed. The patient will benefit from physical therapy. Anticipate that he can be discharged in the next two days if he remains seizure-free and his levels are back to normal on the above medications. Akin Kiser MD AM/SHANNAN /[id number]
[2020-04-11] MEDS: ATORVASTATIN 20 MG TAB PO SCH (20:26)
[2020-04-11] MEDS: SODIUM CHLORIDE 0.9% 1000ML 1,000 ML IV SCH (20:29)
[2020-04-11] MEDS ORDERED: PHENYTOIN SODIUM EXT REL 100 MG CAP PO SCH (22:00)
[2020-04-12] VITALS: BP 140/88
--- NOTE | 2020-04-12 01:26 | Progress Note ---
DATE: 04/11/2020 SUBJECTIVE: The patient is same, actually he is much better. He is more awake. His level went down to 22. Dilantin is still on hold. Other medications are the same including Keppra, torsemide, . MEDICATIONS: Per list. PHYSICAL EXAMINATION: VITAL SIGNS: Afebrile. Vital signs stable. NEUROLOGIC: The patient is alert, follows commands. No lateralized weakness or ataxia. Deep tendon reflexes are 3. 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 We will resume Dilantin tomorrow at 100 mg daily if his levels go back to normal range. Continue multivitamins and thiamin. Akin Kiser MD AM/SHANNAN /[id number]
[2020-04-12 04:00] VITALS: BP 135/69
[2020-04-12 05:55] LABS: BASOPHILS % 0.2 % (0.0-1.0); HEMATOCRIT 43.1 % (38.2-49.6); HEMOGLOBIN 14.4 g/dL (14.0-18.0); LYMPHOCYTES # (AUTO) 0.8 (1.0-3.2); LYMPHOCYTES % 13.5 % (18.0-39.1); MEAN CORPUSCULAR HGB CONC 33.4 g/dL (31-35); MEAN CORPUSCULAR VOLUME 86.9 fL (81-99); MONOCYTES # (AUTO) 0.4 (0.2-0.8); MONOCYTES % 6.9 % (4.4-11.3); NEUTROPHILS # (AUTO) 4.5 (2.1-6.9); PLATELET COUNT 248 x10e3/uL (140-360); RED BLOOD COUNT 4.96 x10e6/uL (4.3-5.7)
[2020-04-12 06:23] LABS: PHENYTOIN (DILANTIN) 21.62 ug/mL (10-20)
[2020-04-12 06:34] LABS: ALANINE AMINOTRANSFERASE 12 IU/L (0-55); ALBUMIN 3.6 g/dL (3.5-5.0); ALBUMIN/GLOBULIN RATIO 1.1 (0.8-2.0); ALKALINE PHOSPHATASE 83 IU/L (40-150); ANION GAP 12.7 mmol/L (8-16); BLOOD UREA NITROGEN 9 mg/dL (7-26); BUN/CREATININE RATIO 12 (6-25); CARBON DIOXIDE 23 mmol/L (22-29); CHLORIDE 104 mmol/L (98-107); CREATININE, SERUM 0.74 mg/dL (0.72-1.25); EST GLOMERULAR FILTRATION RATE > 60 ML/MIN (60-); GLUCOSE 94 mg/dL (74-118); POTASSIUM 3.7 mmol/L (3.5-5.1); SODIUM 136 mmol/L (136-145)
--- NOTE | 2020-04-12 07:03 | NUR ---
Bedside report given to oncoming nurse. Patient resting in bed, respirations even and unlabored, no s/s of distress at this time. All safety measures in place.
--- NOTE | 2020-04-12 07:04 | NUR ---
BEDSIDE SHIFT REPORT RECEIVED FROM MUD CLEANER OPERATOR. PT IN STABLE CONDITION.
[2020-04-12 07:55] VITALS: BP 125/87
[2020-04-12 08:00] VITALS: BP 125/87
[2020-04-12] MEDS: LACOSAMIDE 200 MG PO SCH (09:00)
[2020-04-12] MEDS ORDERED: PHENYTOIN SODI100 MG PO (09:17)
[2020-04-12] MEDS: PROPRANOLOL HCL 60 MG ER CAP PO SCH (09:24)
[2020-04-12] MEDS: LEVETIRACETAM 500 MG TAB PO SCH (09:24)
[2020-04-12] MEDS: PERAMPANEL 12 MG PO SCH (09:24)
[2020-04-12] MEDS: LACTULOSE SYRUP 20 GM/30 ML UDC PO SCH (09:25)
[2020-04-12] MEDS: LISINOPRIL 10 MG TAB PO SCH (09:25)
--- NOTE | 2020-04-13 07:58 | Discharge Summary ---
ADMISSION DIAGNOSES: 1. Dilantin toxicity. 2. Seizures. 3. Hypertension. 4. Illicit drug use. 5. Dizziness. 6. Ataxia. DISCHARGE DIAGNOSES: 1. Dilantin toxicity. 2. Seizures. 3. Hypertension. 4. Illicit drug use. 5. Dizziness. 6. Ataxia. 7. Rule out cerebrovascular accident. HISTORY: Hypertension and seizures. SURGICAL HISTORY: None. FAMILY HISTORY: None. SOCIAL HISTORY: Urine drug screen showed the patient smokes weed. HOSPITAL COURSE: A 29-year-old male with past medical history of hypertension and seizures, who admits with complaints of dizziness, weakness, slurred speech for 3 days. He admits to falling 3 days ago. On admission, the patient is lethargic and unable to complete the HPI and past medical history. So, CT of the brain showed no acute abnormality. Chest x-ray was negative. MRI of the brain showed no acute abnormality, but did show signs of prior craniotomy. Urine culture was negative. On admission, Dilantin level was 37.68, so his Dilantin was held. Neurology was consulted. Also on admission, cannabinoids were positive on the urine drug screen. After a few days, the toxicity level is trending down. The patient was discharged home with new prescription for Dilantin 100 q.8 hours versus his previous dose of 200 b.i.d. He was also given a new prescription for Lipitor due to hyperlipidemia. The patient will be discharged home with his father. He understands instructions and agrees to plan. He was advised to not to drive for 6 months after his last known seizure. He will follow up with primary care in 1 to 2 weeks and Neurology in 1 to 2 weeks. The patient understands instructions and agrees to plan. Dictated by Isela Mccormack NP MD ERCI Hunter/MODL /[id number]
--- NOTE | 2020-04-14 01:12 | Progress Note ---
DATE: 04/12/2020 SUBJECTIVE: Much better. No seizures. The patient's level is down, but not back to normal. It is at 21 now. MEDICATIONS: Per list. PHYSICAL EXAMINATION: NEUROLOGIC: Nonlateralizing, walking around. ASSESSMENT: Seizure disorder. The patient will continue with his pre-admission medication except take Dilantin starting tomorrow at 300 mg daily. No driving. Discussed with the patient. The patient is aware of [place] law and driving. Akin Kiser MD AM/SHANNAN /[id number]
== END 2020-04-12 12:00 | disposition home or self-care (01) | DRG 917 ==
LOC: ER 14:52 → ERHOLD 04-09 00:19 → MED/SURG 04-09 00:57 → OBSVTOIN 04-09 09:03
PROVIDERS: ADMIT Internal Medicine; ATTEND Internal Medicine
DX: T42.0X1A Poisoning by hydantoin derivatives, accidental (unintentional), initial encounter (principal); G92 Toxic encephalopathy; G40.802 Other epilepsy, not intractable, without status epilepticus; I10 Essential (primary) hypertension; F12.90 Cannabis use, unspecified, uncomplicated; Z72.0 Tobacco use; Z88.8 Allergy status to other drugs, medicaments and biological substances; Z91.81 History of falling; E78.5 Hyperlipidemia, unspecified; R27.0 Ataxia, unspecified
CPT/HCPCS: 36415; 70450; 70553; 71045; 80053; 80061; 80185; 80307; 80320; 80329; 81001; 82140; 82550; 82553; 83735; 84443; 84484; 85025; 85610; 85730; 87086; 87635; 93005; 93306; 93880; 97139; 99284; J7030; J7042

== ENCOUNTER → 2020-04-19 | Outpatient (CLI) | payer MEDICARE ==
[~2020-04-19] MED LIST: FYCOMPA PO; LEVETIRACETAM1000 MG PO; LIPITOR20 MG PO; LISINOPRIL10 MG PO; LORATADINE10 MG PO; PHENYTEK200 MG PO; PHENYTOIN SODI100 MG PO; PROPRANOLOL HCL60 MG PO; VIMPAT200 MG PO
--- NOTE | 2020-04-19 14:42 | Diagnostic Imaging Report ---
TECHNIQUE: Computed tomography imaging of the LEFT SHOULDER was performed WITHOUT injected contrast. Dose modulation, iterative reconstruction, and/or weight based adjustment of the mA/kV was utilized to reduce the radiation dose to as low as reasonably achievable. COMPARISON: None available. HISTORY: Pain FINDINGS: Hill Sachs impaction fracture to the posterior lateral head with cranial caudel dimension of 2.5 cm, depth of 1.4 cm, and transverse dimension of 2.2 cm. The biceps angle measures approximately 170 degrees. No osseous Bankart lesion. Additional fracture of the distal acromion without significant displacement. No rib fracture. The glenohumeral joint is normally aligned with small effusion IMPRESSION: Sequela of shoulder dislocation with Hill Sachs impaction deformity to the posterior lateral humeral head. No osseous Bankart. Nondisplaced fracture of the distal acromion. Signed by: Dr. Dmitri Ochoa M.D. on 04/19/2020 2:39 PM
== END ==
LOC: CT 12:58
PROVIDERS: ATTEND Specialist
DX: S43.015A Anterior dislocation of left humerus, initial encounter (principal)